=== PATIENT | male | born 1935 | race Caucasian/White ===

== ENCOUNTER 2017-02-07 09:59 | Outpatient (CLI) | payer MEDICARE, OTHER ==
--- OUTSIDE RECORDS SUMMARY | 2017-02-07 10:03 | XMS | Clinical Summary ---
:[address] [facility] Address [address] [place] [address] Phone Care Team Providers Name Role Phone , Primary Care Provider Unavailable Allergies Active Allergy Reactions Severity Noted Date Comments Epinephrine Other (See Comments) Low 08/12/2015 Dizzy at dentist Current Medications Prescription Sig. Disp. Refills Start Date End Date Status aspirin 325 MG EC tablet Take 325 mg by Active mouth daily. omeprazole (PRILOSEC) 40 Take 40 mg by mouth Active MG capsule nightly . pravastatin (PRAVACHOL) Take 40 mg by mouth Active 40 MG tablet daily. isosorbide mononitrate Take 60 mg by mouth Active (IMDUR) 60 MG 24 hr daily. tablet lisinopril Take 10 mg by mouth Active (PRINIVIL,ZESTRIL) 10 MG nightly . tablet coenzyme Q10 100 mg Take 200 mg by Active capsule mouth daily . UNKNOWN Steffen red krill oil. Active multivitamin per tablet Take 1 tablet by Active mouth daily. ezetimibe (ZETIA) 10 mg Take 10 mg by mouth Active tablet nightly . saw palmetto 80 MG Take 80 mg by mouth Active capsule 2 (two) times daily. Active Problems Not on file Social History Tobacco Use Types Packs/Day Years Used Date Former Smoker Smokeless Tobacco: Never Used Comments:QUIT SMOKING >30 YRS AGO Alcohol Use Drinks/Week oz/Week Comments Yes 2 Cans of beer 1.2 2 beers per day Sex Assigned at Date Recorded Not on file Last Filed Vital Signs Vital Sign Reading Time Taken Blood Pressure 134/76 09/28/2016 2:51 PM CDT Pulse 71 09/28/2016 2:51 PM CDT Temperature 36.2 C (97.1 F) 09/28/2016 3:25 PM CDT Respiratory Rate 18 09/28/2016 3:25 PM CDT Oxygen Saturation 91% 09/28/2016 2:51 PM CDT Inhaled Oxygen Concentration - - Weight 118 kg (260 lb 3.2 oz) 09/28/2016 9:45 AM CDT Height 190.5 cm (6' 3") 09/28/2016 9:45 AM CDT Body Mass Index 32.52 09/28/2016 9:45 AM CDT Plan of Treatment Not on file Results Not on filefrom Last 3 Months
[2017-02-07 12:02] LABS: Mean Platelet Volume 8.9 fL (7.4-10.4); Red Blood Cell (RBC) Count 5.33 mill/uL (4.70-6.10)
[2017-02-07 12:06] LABS: Bilirubin Negative (Negative); Blood, Urine Negative (Negative); Glucose, Urine (Dipstick) Negative (Negative); Ketone, Urine Negative (Negative); Nitrite Negative (Negative); Protein, Urine (Dipstick) Negative (Neg-Trace)
[2017-02-07 12:07] LABS: Bacteria/HPF None Seen HPF (None Seen); Hyaline Casts/LPF 0-3 HYALINE CAST LPF (0-3 Hyaline); Squamous Epithelial None Seen HPF (0-3)
[2017-02-07 12:18] LABS: PTT 33.6 SEC (22.9-36.1)
[2017-02-07 12:26] LABS: Anion Gap 12 mmol/L (10-20); BUN (Urea Nitrogen) 18 mg/dL (8.4-25.7); Calc. Creatinine Clearance 0 mL/min (70-130); Calcium 9.2 mg/dL (7.8-10.44); Carbon Dioxide 27 mmol/L (23-31); Chloride 105 mmol/L (98-107); Estimated GFR-MDRD 86
== END 2017-02-07 10:00 | disposition home or self-care (01) ==
LOC: LABBT 09:59
PROVIDERS: ATTEND Urology
DX: Z01.818 Encounter for other preprocedural examination (principal); C67.9 Malignant neoplasm of bladder, unspecified
CPT/HCPCS: 80048; 81001; 85027; 85610; 85730; 87086; 93005; 93010

== ENCOUNTER 2017-02-18 14:23 | Outpatient (CLI) | payer MEDICARE, OTHER | END 2017-02-18 14:24 | disposition home or self-care (01) | LOC: LABBT 14:23 | PROVIDERS: ATTEND Urology | DX: Z01.818 Encounter for other preprocedural examination (principal); C67.9 Malignant neoplasm of bladder, unspecified | CPT/HCPCS: 86850; 86900; 86901 ==

== ENCOUNTER → 2017-02-21 | Day surgery (SDC) | payer MEDICARE, OTHER ==
[2017-02-07 10:11] VITALS: BMI 33.1
[~2017-02-21] MED LIST: Fentanyl 100 MCG/2 ML VIAL ONE; Glycopyrrolate 0.2 MG/ML 5 ML SYRINGE ONE; Levofloxacin 500 mg/D5W 100 ml Premix Bag ONE; Lidocaine 2% PF 10 ML AMP (For Epidural Use) ONE; Midazolam HCl 2 mg/2 ml Vial ONE; Ondansetron HCl/PF 4 MG/2 ML Vial ONE; PHENYLEPHRINE-NS 100 MCG/ML 10 ML SYRINGE ONE; Phenazopyridine HCl 97.5 MG TABLET ONE; Propofol 200 MG/20 ML VIAL ONE; SUGAMMADEX SODIUM 200 MG/2 ML VIAL ONE; SUGAMMADEX SODIUM 500 MG/5 ML VIAL ONE
--- NOTE | 2017-02-21 09:46 | OP ---
DATE OF PROCEDURE: 02/21/2017 SERVICE: Urology. SURGEON: Silverio Muse M.D. PREOPERATIVE DIAGNOSIS: Bladder cancer. POSTOPERATIVE DIAGNOSIS: Bladder cancer. PROCEDURE PERFORMED: Transurethral resection of bladder tumor less than 2 cm area of resection, bertha dder biopsies with left diagnostic ureteroscopy. INDICATIONS FOR PROCEDURE: Mr. Wilson is a 81-year-old white male who previously has been under the c are of Dr. Allison. He had undergone recent resection of bladder tumors and on repeat cystoscopy had been found to have several new recurrences. These had not yet been treated at the time of his moran sfer of care to me. I recommended we get another CT scan as he had been over a year since his last imaging and with new recurrences, I recommended the upper tracts to be imaged more appropriately. T he CT demonstrated there was some abnormal enhancement of the left distal ureter, but otherwise ther e was no significant concern for filling defects or metastatic disease. He is being brought in for removal and diagnosis of these tumors today. DESCRIPTION OF PROCEDURE: After identification of armband and verification of consent, the patient was brought back to the operating room where he underwent general anesthesia with endotracheal intub ation. He was then placed in dorsal lithotomy position and prepped and draped in usual sterile fash ion. After appropriate timeout, lubricated 22-Rwandan rigid cystoscope was introduced per urethra in to the bladder. The urethra did not demonstrate any abnormalities or tumors. The prostate was mode rately obstructive with moderate hypertrophy. No significant median lobe or intravesical extension. Upon entry into the bladder, there was a grade II trabeculation noted throughout the bladder. The re were several mucosal tumors identified, one at approximately 9:00 in the bladder neck. A second tumor noted at the most lateral aspect of the trigone on the left side. A smaller tumor lateral to that on the left posterior bladder wall and two additional tumors identified anteriorly and posterio r central very small tumors. Initially, ureteroscopy was performed with a semirigid ureteroscope wi thout a wire to help ensure that there was no mucosal irritation or trauma. The cystoscope was laquita frances. The ureteroscope was inserted gently into the ureteral orifice and the mucosa inspected, did n ot appear to be any obvious tumor at this point and so I felt that the enhancement was likely physio logic rather than pathologic although we will need to keep close eye on this area to make sure that tumor does not develop later. The ureteroscope was then withdrawn and with the visual obturator was introduced per urethra back into the bladder, the bipolar gyrus resectoscope with a bladder loop wa s then attached into the resectoscope sheath and the tumor at the bladder neck and the left trigone were resected and submitted for routine pathologic evaluation. The resectoscope was then withdrawn and a 22 Rwandan rigid cystoscope was introduced back into the bladder. The irrigation was changed f rom saline to water and the Bugbee and cold cup biopsy graspers brought into the bladder. Cold cup biopsies were then performed on the small tumor on the left posterior wall, anterior bladder and pos terior bladder and submitted for routine pathologic evaluation. Remainder of inspection of the blad lanie with the 30 and 70 degree lens did not demonstrate any additional tumors. With careful inspecti on satisfied that I had gotten all visible tumor that I could identify, the areas of biopsy were ful gurated with the Bugbee electrode until there was excellent hemostasis. A few areas at the bladder neck which were bleeding just secondary to manipulation with the camera were also fulgurated. Satis fied that all visible tumor had been treated, the cystoscope was used to drain the bladder and then removed. The patient was then awakened and taken to PACU for recovery in stable condition. COMPLICATIONS: None. ESTIMATED BLOOD LOSS: Minimal. RETAINED TUBES AND DRAINS: None. SPECIMENS: Bladder biopsies and resected bladder tumor. DISPOSITION: The patient will be discharged home and follow up with me in approximately a week to g shanda over his pathology results, at which time, I have recommended he initiated BCG treatments to try a nd prevent further progression and recurrence of his bladder cancer.
== END ==
LOC: SDC 05:44
PROVIDERS: ATTEND Urology
PROC: 0TBB8ZX Excision of Bladder, Via Natural or Artificial Opening Endoscopic, Diagnostic (ICD-10-PCS; principal; 2017-02-21)
DX: C67.9 Malignant neoplasm of bladder, unspecified (principal); N32.89 Other specified disorders of bladder; N40.0 Benign prostatic hyperplasia without lower urinary tract symptoms; R26.9 Unspecified abnormalities of gait and mobility; I10 Essential (primary) hypertension; K21.9 Gastro-esophageal reflux disease without esophagitis; E89.2 Postprocedural hypoparathyroidism; J98.6 Disorders of diaphragm; I25.10 Atherosclerotic heart disease of native coronary artery without angina pectoris; E29.1 Testicular hypofunction; Z79.82 Long term (current) use of aspirin; Z79.899 Other long term (current) drug therapy; Z88.8 Allergy status to other drugs, medicaments and biological substances; Z95.1 Presence of aortocoronary bypass graft; Z90.49 Acquired absence of other specified parts of digestive tract; Z98.890 Other specified postprocedural states; Z87.891 Personal history of nicotine dependence; Z82.3 Family history of stroke; Z80.1 Family history of malignant neoplasm of trachea, bronchus and lung; Z80.0 Family history of malignant neoplasm of digestive organs
CPT/HCPCS: 88307; J1956; J2001; J2250; J2405; J2704; J3010

== ENCOUNTER 2017-04-17 11:09 | Outpatient (CLI) | payer MEDICARE, OTHER ==
[~2017-04-17 11:09] MED LIST changes: -Fentanyl 100 MCG/2 ML VIAL ONE; +Gadobenate Dimeglumine 529 MG/1 ML (20ML VIAL) ONE; -Glycopyrrolate 0.2 MG/ML 5 ML SYRINGE ONE; -Levofloxacin 500 mg/D5W 100 ml Premix Bag ONE; -Lidocaine 2% PF 10 ML AMP (For Epidural Use) ONE; -Midazolam HCl 2 mg/2 ml Vial ONE; -Ondansetron HCl/PF 4 MG/2 ML Vial ONE; -PHENYLEPHRINE-NS 100 MCG/ML 10 ML SYRINGE ONE; -Phenazopyridine HCl 97.5 MG TABLET ONE; -Propofol 200 MG/20 ML VIAL ONE; -SUGAMMADEX SODIUM 200 MG/2 ML VIAL ONE; -SUGAMMADEX SODIUM 500 MG/5 ML VIAL ONE
--- NOTE | 2017-04-17 14:03 | MRI ---
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 FINDINGS: There is mild prominence of the ventricular system with age appropriate atrophy. No acute territoria l infarction, mass effect, or midline shift. There is no evidence of mass or pathologic enhancement of either CP angle cistern. No enhancing intraaxial mass. There is mild chronic microvascular ische priya disease. There is absence of a tetlin left intraocular lens. Mild mucosal thickening of the par anasal sinuses is present. Central skull base flow voids are patent. IMPRESSION: 1. No evidence of mass or pathologic enhancement of either costophrenic angle cistern. 2. Parenchymal volume loss with compensatory dilatation of the ventricular system. 3. Mild chronic microvascular ischemic disease. 4. No acute intracranial abnormalities. POS: [facility]
== END 2017-04-17 11:10 | disposition home or self-care (01) ==
LOC: MRI 11:09
PROVIDERS: ATTEND Otolaryngology
DX: H90.3 Sensorineural hearing loss, bilateral (principal); R42 Dizziness and giddiness; G93.89 Other specified disorders of brain
CPT/HCPCS: 70553; A9579

== ENCOUNTER 2017-06-20 10:59 | Outpatient (CLI) | payer MEDICARE, OTHER ==
[2017-06-20 12:17] LABS: Hemoglobin 14.9 g/dL (14.0-18.0); Mean Corpuscular HGB CONC 32.7 g/dL (32.0-36.0); Mean Corpuscular Hemoglobin 32.1 pg (27.0-31.0); Mean Corpuscular Volume 98.2 fl (80.0-94.0); Platelet Count 286 thou/uL (130-400); Red Blood Cell (RBC) Count 4.63 mill/uL (4.70-6.10); White Blood Cell (WBC) Count 10.3 thou/uL (4.8-10.8)
[2017-06-20 12:22] LABS: Bilirubin Negative (Negative); Blood, Urine Negative (Negative); Clarity CLEAR (Clear); Glucose, Urine (Dipstick) Negative (Negative); Leukocyte Small (Negative); Nitrite Negative (Negative); Protein, Urine (Dipstick) Negative (Neg-Trace); Prothrombin Time 13.4 SEC (12.0-14.7); Specific Gravity, Urine 1.022 (1.002-1.036)
[2017-06-20 12:24] LABS: Bacteria/HPF None Seen HPF (None Seen); Hyaline Casts/LPF 4-6 HYALINE CAST LPF (0-3 Hyaline); Squamous Epithelial 0-3 HPF (0-3)
[2017-06-20 12:36] LABS: Anion Gap 17 mmol/L (10-20); BUN (Urea Nitrogen) 22 mg/dL (8.4-25.7); Calc. Creatinine Clearance 0 mL/min (70-130); Calcium 9.8 mg/dL (7.8-10.44); Carbon Dioxide 27 mmol/L (23-31); Chloride 100 mmol/L (98-107); Estimated GFR-MDRD 84; Glucose 97 mg/dL (83-110); Potassium 3.7 mmol/L (3.5-5.1); Sodium 140 mmol/L (136-145)
--- NOTE | 2017-06-20 21:54 | EKG ---
Test Reason : Blood Pressure : / mmHG Vent. Rate : 078 BPM Atrial Rate : 078 BPM P-R Int : 168 ms QRS Dur : 098 ms QT Int : 396 ms P-R-T Axes : 035 -07 012 degrees QTc Int : 451 ms Normal sinus rhythm Voltage criteria for left ventricular hypertrophy No acute changes. Abnormal ECG When compared with ECG of 07-FEB-2017 10:44, No significant change was found Confirmed by VARGAS DE LOS SANTOS ([id number]) on 06/20/2017 9:54:05 PM Referred By: CAMELIA Confirmed By:VARGAS DE LOS SANTOS
== END 2017-06-20 11:00 | disposition home or self-care (01) ==
LOC: LABBT 10:59
PROVIDERS: ATTEND Urology
DX: Z01.818 Encounter for other preprocedural examination (principal); N32.9 Bladder disorder, unspecified; R89.6 Abnormal cytological findings in specimens from other organs, systems and tissues
CPT/HCPCS: 80048; 81001; 85027; 85610; 85730; 93005; 93010

== ENCOUNTER 2017-06-28 11:55 | Outpatient (CLI) | payer MEDICARE, OTHER | END 2017-06-28 11:56 | disposition home or self-care (01) | LOC: LABBT 11:55 | PROVIDERS: ATTEND Urology | DX: Z01.818 Encounter for other preprocedural examination (principal); N32.9 Bladder disorder, unspecified; R89.6 Abnormal cytological findings in specimens from other organs, systems and tissues | CPT/HCPCS: 86850; 86900; 86901 ==

== ENCOUNTER 2017-07-15 10:57 | Outpatient (CLI) | payer MEDICARE, OTHER ==
[2017-07-15 12:10] LABS: Bilirubin Negative (Negative); Blood, Urine Negative (Negative); Clarity CLEAR (Clear); Glucose, Urine (Dipstick) Negative (Negative); Leukocyte Trace (Negative); Nitrite Negative (Negative); Protein, Urine (Dipstick) Negative (Neg-Trace)
[2017-07-15 12:15] LABS: Bacteria/HPF None Seen HPF (None Seen); Hyaline Casts/LPF 0-3 HYALINE CAST LPF (0-3 Hyaline); Squamous Epithelial None Seen HPF (0-3)
[2017-07-15 12:28] LABS: RBC/HPF None Seen HPF (0-3)
== END 2017-07-15 10:58 | disposition home or self-care (01) ==
LOC: LABBT 10:57
PROVIDERS: ATTEND Urology
DX: Z01.818 Encounter for other preprocedural examination (principal); C67.9 Malignant neoplasm of bladder, unspecified
CPT/HCPCS: 81001; 87086

== ENCOUNTER 2017-07-18 06:54 | Day surgery (SDC) | payer MEDICARE, OTHER ==
[2017-07-15 11:20] VITALS: BMI 29.9
[2017-07-18] MEDS ORDERED: Levofloxacin 500 mg/D5W 100 ml Premix Bag ONE (09:02)
[2017-07-18] MEDS ORDERED: Fentanyl 250 MCG/5 ML VIAL ONE (13:26)
[2017-07-18] MEDS ORDERED: Iothalamate Meglumine 60% 50 ML VIAL FS ONE (15:06)
[2017-07-18] MEDS ORDERED: Phenazopyridine HCl 97.5 MG TABLET ONE (15:14)
[2017-07-18] MEDS ORDERED: Oxybutynin 5 MG TAB ONE (15:14)
[2017-07-18] MEDS ORDERED: Ondansetron HCl/PF 4 MG/2 ML Vial ONE (15:32)
--- NOTE | 2017-07-18 16:21 | RAD ---
RETROGRADE PYELOGRAM: Four images were presented from OR during retrograde procedure. INDICATION: Bladder cancer. Intraoperative imaging during retrograde procedure. FINDINGS: These images show opacification of the left collecting structures. There is a double collecting syst em on the left. The ureters appear to fuse at the pelvic rim. Both upper moieties are opacified. The final image also shows opacification of the right collecting structures which appears to represen t a normal single colleting system. POS: [facility]
--- NOTE | 2017-07-18 16:22 | OP ---
DATE OF SURGERY: 07/18/2017 SERVICE: Urology. SURGEON: Silverio Muse M.D. PREOPERATIVE DIAGNOSIS: Bladder cancer. POSTOPERATIVE DIAGNOSIS: Bladder cancer. PROCEDURE PERFORMED: Transurethral resection of bladder tumor, resection size over 5 cm with bilater al selective cytologies and bilateral retrograde pyelograms. INDICATIONS FOR PROCEDURE: Mr. Wilson is a 81-year-old white male with a history of low grade recurren t bladder cancer. On cystoscopy, he had an unusual calcified lesion on his lateral bladder wall as w ell as several other scattered lesions, which could not be differentiated from calcified tumors versu s inflammatory lesions with calcifications. His urine cytology was suspicious. Therefore, I recomme nded that we bring him to the operating room for evaluation of his upper and lower tracts with resect ion of these calcified areas. I discussed the procedure in detail with risks and benefits, he has ag jessica to proceed forward. DESCRIPTION OF PROCEDURE: After identification of armband and verification of consent, the patient w as brought back to the operating room, where he underwent general anesthesia with an LMA. He was the n placed in a dorsal lithotomy position, prepped and draped in usual sterile fashion. After appropri ate timeout, a lubricated 26 Surinamese visual obturator guided resectoscope sheath was placed in through the patient's penis into the bladder. His bladder demonstrated grade III trabeculation with multipl e cellules. Both ureters in the orthotopic location with somewhat patulous ureter on the right, saloni cating that this has been likely a previous resection site. The heavily calcified lesion was noted o n the lateral bladder wall with several other smaller calcified lesions throughout the bladder, total ing 4 lesions independently. The larger lesion was resected and the calcification and scar appeared to go quite deep into the detrusor muscle. At one point, it did appear that there may be some perive sical fat visible, indicating that the bladder had been transected transmurally, but this was an extr sara small area. The remainder of it was within the detrusor muscle. The remaining other lesions w ere also resected off from their respective locations. One from the right posterior, one from a lesi on close by to the left lateral one and one near the bladder dome. These [facility]. Meticulous hemostasis was performed of the resection sites. At this point , the resectoscope sheath was used to drain the bladder and then removed. A 22 Surinamese rigid cystosco pe was then introduced per urethra into the bladder. Attention was first turned to the right uretera l orifice, which was cannulated with a 5 Surinamese Pollack catheter. This was used to flush for irrigat e the ureter and renal pelvis with normal saline and then collected into a specimen cup for a right-s ided selective urine cytology. A new Pollack catheter was used for the left side but the same proced ure was done with the 5-Surinamese Pollack catheter with irrigation of 5 mL and collection of the irrigat ion in a separate specimen cup sent as a left urine cytology. Using a Pollack catheter, retrograde p yelogram was performed on the left, demonstrating a partially duplicated ureter with no filling defec ts identified and no hydronephrosis. Attention was then turned to the right ureter, which was cannul ated with a 5 Surinamese Pollack catheter and a retrograde pyelogram performed demonstrating no hydroneph rosis and no filling defects. Satisfied that the upper tracts are clear. The Pollack catheter was t hen removed. The bladder was left full with the cystoscope removed. An 18 Surinamese Martinez catheter was placed into the patient's bladder with 10 mL of sterile water placed into the balloon. This was fix ed to the patient's leg with a StatLock and a gravity drainage bag. The patient was then taken out o f lithotomy, awakened, and taken to PACU for recovery in stable condition. COMPLICATIONS: None. ESTIMATED BLOOD LOSS: Minimal. RETAINED TUBES AND DRAINS: An 18 Surinamese Martinez catheter. SPECIMENS: Bilateral selective cytologies and bladder lesion resection. DISPOSITION: The patient will be discharged home with a Martinez catheter. We will plan to perform a v oiding trial after approximately 4 days, at which time, I expect his bladder to have at least healed up sufficiently as there was an extremely small area of possible detrusor penetration. We will handl e his followup care on an outpatient basis.
== END 2017-07-18 16:25 | disposition home or self-care (01) ==
LOC: SDC 06:54
PROVIDERS: ATTEND Urology
PROC: 0TBB8ZX Excision of Bladder, Via Natural or Artificial Opening Endoscopic, Diagnostic (ICD-10-PCS; principal; 2017-07-18)
PROC: BT141ZZ Fluoroscopy of Kidneys, Ureters and Bladder using Low Osmolar Contrast (ICD-10-PCS; 2017-07-18)
DX: C67.9 Malignant neoplasm of bladder, unspecified (principal); I10 Essential (primary) hypertension; I71.4 Abdominal aortic aneurysm, without rupture; K21.9 Gastro-esophageal reflux disease without esophagitis; I25.10 Atherosclerotic heart disease of native coronary artery without angina pectoris; E78.5 Hyperlipidemia, unspecified; K22.70 Barrett's esophagus without dysplasia; Z87.891 Personal history of nicotine dependence; Z87.442 Personal history of urinary calculi; Z88.8 Allergy status to other drugs, medicaments and biological substances; Z98.890 Other specified postprocedural states
CPT/HCPCS: 52005; 52240; 74420; 88112; 88305; 88341; 88342; C1758; 88108; J1956; J2405; J3010; Q9961

== ENCOUNTER 2017-07-23 08:22 | Outpatient (CLI) | payer MEDICARE, OTHER ==
--- NOTE | 2017-07-23 12:05 | RAD ---
VOIDING CYSTO URETHROGRAM: History: Bladder injury. FINDINGS: Approximately 300 cc of water soluble contrast was instilled into the urinary bladder. There was imme diate bilateral vesicoureteral reflux to the level of the pelvic inlet on the right and into the nond ilated duplicated left renal collecting system on the left. There is partial duplication of the left ureter. No leak from the urinary bladder was apparent. Male urethra has a normal appearance during mi cturition. A small amount of contrast is seen outlining the inferior pole of the left kidney after the reflux wa s achieved. Patient tolerated the procedure well and was dismissed in good condition. IMPRESSION: 1. No evidence of leak from the urinary bladder. There is evidence of leak at the level of the renal calices, although exact point of leak is not identified. 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 3. Bilateral vesicoureteral reflux, grade I on the right. Grade II on the left. POS: [facility]
[2017-07-23] MEDS ORDERED: ISOVUE-370 76%-LOCM 1 ML ONE (16:25)
== END 2017-07-23 08:23 | disposition home or self-care (01) ==
LOC: RAD 08:22
PROVIDERS: ATTEND Urology
DX: N99.72 Accidental puncture and laceration of a genitourinary system organ or structure during other procedure (principal); N13.70 Vesicoureteral-reflux, unspecified
CPT/HCPCS: 51600; 74455

== ENCOUNTER 2017-11-08 12:16 | Inpatient (IN) | payer MEDICARE, OTHER ==
[~2017-11-08 12:16] MED LIST changes: -Gadobenate Dimeglumine 529 MG/1 ML (20ML VIAL) ONE; +ISOVUE-370 76%-LOCM 1 ML ONE
[2017-11-08 13:04] LABS: #Basophils 0.1 thou/uL (0.0-0.2); #Eosinphils 0.1 thou/uL (0.0-0.7); #Lymphocytes 2.3 thou/uL (1.20-3.40); #Monocytes 0.7 thou/uL (0.11-0.59); #Neutrophils 4.9 thou/uL (1.40-6.50); %Basophils 0.9 % (0.0-1.0); %Eosinophils 1.2 % (0.0-10.0); %Lymphocytes 28.5 % (21.0-51.0); %Monocytes 8.7 % (0.0-10.0); %Neutrophils 60.6 % (42.0-75.0); Hemoglobin 14.3 g/dL (14.0-18.0); Mean Corpuscular HGB CONC 33.4 g/dL (32.0-36.0); Mean Corpuscular Hemoglobin 32.3 pg (27.0-31.0); Mean Corpuscular Volume 96.7 fL (78.0-98.0); Mean Platelet Volume 7.5 fL (7.4-10.4); Platelet Count 232 thou/uL (130-400); RBC Distribution Width 12.7 % (11.5-14.5); Red Blood Cell (RBC) Count 4.41 mill/uL (4.70-6.10); White Blood Cell (WBC) Count 8.1 thou/uL (4.8-10.8)
[2017-11-08 13:13] LABS: PTT 31.1 SEC (22.9-36.1); Prothrombin Time 14.5 SEC (12.0-14.7)
[2017-11-08 13:14] LABS: INR-International Normal Ratio 1.1
--- NOTE | 2017-11-08 13:24 | CT ---
CT BRAIN NONCONTRAST: DATE: 11/08/17 TIME: 1239 HOURS HISTORY: 81-year-old male with left upper extremity weakness and left facial numbness. This STAT stroke alert protocol report was called by Dr. Sutton to Dr. Cerna at 1244 hours on 11/08/17 . FINDINGS: There is no midline shift or any other mass effect. There is no evidence of acute intracranial hemor rhage, large cortical infarct, or extraaxial fluid collection. The calvarium is intact. There is di ffuse parenchymal volume loss. There are low attenuation areas in the white matter. These are nonsp ecific, but in a patient of this age, they are probably chronic ischemic white matter changes due to microvascular atherosclerosis. There are calcifications of the bilateral carotid siphons, and especially the left middle cerebral ar ana, including M1 and M2 segments. This includes a 4 mm prominent calcification in the vicinity of t he left MCA trifurcation. These are unchanged compared to 01/20/17, and therefore none of them repres ents an acute thromboembolus. There is also a calcification in one of the sylvian branches of the con tralateral right MCA, which is more prominent than on 01/20/17. The lateral and third ventricles are mildly to moderately dilated, apparently on an ex vacuo basis due to central parenchymal volume loss, unchanged since 03/05/15. IMPRESSION: 1. No acute intracranial findings. 2. Involutional changes and chronic ischemic white matter changes. CODE CR. jn r POS: [facility]
[2017-11-08 13:25] LABS: Albumin 3.8 g/dL (3.4-4.8)
[2017-11-08 13:26] LABS: Chloride 103 mmol/L (98-107); Potassium 4.2 mmol/L (3.5-5.1); Sodium 136 mmol/L (136-145)
[2017-11-08 13:27] LABS: Calcium 9.1 mg/dL (7.8-10.44)
[2017-11-08 13:28] LABS: Globulin 2.8 g/dL (2.4-3.5); Glucose 95 mg/dL (83-110); Protein, Total 6.6 g/dL (5.8-8.1)
[2017-11-08 13:29] LABS: Anion Gap 11 mmol/L (10-20); Bilirubin, Total 0.6 mg/dL (0.2-1.2); Carbon Dioxide 26 mmol/L (23-31)
[2017-11-08 13:30] LABS: Alkaline Phosphatase 64 U/L (40-150)
[2017-11-08 13:31] LABS: Calc. Creatinine Clearance 0 mL/min (70-130); Estimated GFR-MDRD Greater than 90
[2017-11-08 13:32] LABS: BUN (Urea Nitrogen) 14 mg/dL (8.4-25.7)
[2017-11-08 13:33] LABS: ALT (SGPT) 8 U/L (8-55); AST (SGOT) 21 U/L (5-34)
[2017-11-08 13:38] LABS: CKMB 1.2 ng/mL (0-6.6); Troponin I Less than 0.010 ng/mL (< 0.028)
--- NOTE | 2017-11-08 14:37 | CT ---
CT ANGIO HEAD WITH IV CONTRAST: Date: 11/08/17 Multiple axial tomograms obtained through the head following a cerebral angio protocol with multiplan ar reconstruction and 3D postprocessing. INDICATION: Stroke alert. Left side weakness. FINDINGS: Noncontrast CT showed no acute infarct. FINDINGS: The intracranial internal carotid arteries are patent. There are atherosclerotic calcifications in ca vernous portions of both internal carotid arteries. This does produce luminal narrowing on the left a pproaching 50% diameter. Prominent atherosclerotic calcification also seen in the supraclinoid portions of both internal carot id arteries producing moderate bilateral luminal stenosis approaching 50% diameter in both supraclino id internal carotid arteries. The anterior cerebrals are normal and symmetric. The middle cerebral arteries are patent with no evidence of proximal middle cerebral stenosis or occl usion. There are areas of atherosclerotic calcification in the M1 segment of the left MCA producing m oderate stenosis near the genu of the left MCA. The basilar artery is patent. Bilateral posterior cerebrals are patent and symmetric. IMPRESSION: 1. Atherosclerotic calcified plaque is seen in the cavernous portions of both internal carotid arter ies and in the supraclinoid portion of both internal carotid arteries. This calcified plaque does pro duce bilateral stenosis which appears to approach hemodynamic significance of 50% diameter bilaterall y. 2. Mild calcified plaque in the distal M1 segment on the left and at the genu producing what appears to be moderate stenosis in the left distal M1 segment. CT ANGIO NECK: Multiple axial tomograms obtained through neck with angio protocol with multiplanar reconstruction an d 3D postprocessing. INDICATION: Stroke. FINDINGS: Atherosclerotic change is seen in the aortic arch. There is atherosclerotic calcification at the orig in of the arch vessels without evidence of significant stenosis. Both common carotid arteries are unremarkable with mild atherosclerotic change. In the right bulb, there is a large area of complex plaque, both soft and calcified plaque, with evid ence of ulcerated plaque. This produces mild stenosis, but does not appear to be hemodynamically sign ificant according to NASCET criteria. The degree of stenosis is less than 50% diameter. The right ICA above the bulb is unremarkable, but tortuous. There is calcified plaque in the left bulb. Mild soft plaque in the left bulb, not as extensive as th at seen on the right. There is evidence of plaque ulceration, however. There is no evidence of hemody namically significant stenosis. The ICA above the bulb is patent. There is a dominant left vertebral artery. Both vertebrals are patent. IMPRESSION: 1. Large area of complex plaque in the right bulb and proximal ICA, with peripheral calcification an d large area of soft plaque with evidence of ulcerated plaque. This would place the patient at risk f or embolic phenomenon from this site. 2. Moderate atherosclerotic change in the left bulb and left proximal ICA with evidence of ulcerated plaque on the left as well. 3. No evidence of hemodynamically significant stenosis in either internal carotid artery. Findings relayed to Dr. Cerna CODE CR. POS: [facility]
[2017-11-08] MEDS ORDERED: Milk Of Magnesia 30 ML UDCUP PO PRN (14:56)
[2017-11-08] MEDS ORDERED: Acetaminophen 325 MG TAB PO PRN (14:56)
--- NOTE | 2017-11-08 17:06 | MRI ---
MRI OF THE BRAIN WITHOUT CONTRAST: 11/08/17 INDICATIONS: Left arm and facial numbness since 11 o'clock this morning. COMPARISON: CT of the brain dated 11/08/17. FINDINGS: Motion artifact heavily limits image detail. There are punctate foci of restricted diffusion involvin g the cortex of the right frontal lobe as well as the subcortical white matter adjacent to the right lateral ventricle consistent with small punctate acute infarcts. No definite corresponding T2 signal abnormality is evident. No definite intracranial hemorrhage is demonstrated. There is generalized cer ebral atrophy with moderate chronic small vessel white matter ischemic change. The left vertebral art titi is dominant. The diminutive right vertebral artery appears to possibly terminate as the right PIC A on the CTA examination dated 11/08/17. IMPRESSION: 1. Punctate foci of acute infarction involving the right frontal lobe as well as the subcortical white matter of the right parietal region. 2. Generalized cerebral and cerebellar atrophy. 3. Mild chronic small vessel white matter ischemic change. 4. Limitation of exam due to motion artifact. POS: [facility]
[2017-11-08 17:15] VITALS: BMI 32.0
[2017-11-08] MEDS: Atorvastatin Calcium 40 MG TAB PO SCH (20:34)
[2017-11-08] MEDS: Famotidine 20 MG TAB PO SCH (20:34)
[2017-11-08] MEDS: Docusate 100 MG CAP PO SCH (20:34)
--- NOTE | 2017-11-08 20:50 | HP ---
[facility] PH[facility]IAN: Marcos Hoang. PRESENTING COMPLAINT: Weakness and tingling in his left hand. HISTORY OF PRESENT ILLNESS: Mr. Steve Herrera is a 81-year-old male with a past medical history of CAD status post CABG, Meniere's disease, BPH, hyperlipidemia , AAA status post repair, bladder cancer and hypertension. He presented to the emergency room today after he had an episode of numbness in his left arm and fingers around 7:30 a.m. and felt unusual, but patient denied slurred speech, blurry version, loss of consciousness. He had no chest pain, shortness of breath, or palpitation. He takes aspirin every night. No other blood thinners and he also reports some tingling around his face and his mouth. By the time he got to the emergency room, most of the symptoms have resolved. There is no history of fevers, no chills, no changes in about appetite. He has no urinary symptoms. PAST MEDICAL HISTORY: As stated in the HPI. PAST SURGICAL HISTORY: CABG, AAA repair, parathyroid gland removal, 16 polyps removed from his bladder, right rotator cuff surgery, cholecystectomy, right total knee replacement. FAMILY HISTORY: Pancreatic cancer in a sibling. Other family history reviewed but noncontributory. SOCIAL HISTORY: Former smoker. He drinks one beer daily. ALLERGIES: EPINEPHRINE. HOME MEDICATIONS: Aspirin 325 mg at bedtime, Zetia 10 mg at bedtime, isosorbide mononitrate 60 mg a.m., lisinopril 10 mg q.p.m., magnesium oxide 500 mg daily, multivitamin tablet 1 tablet daily, omega red 300 mg daily, omeprazole 20 mg at bedtime, pravastatin 40 mg at bedtime, Saw palmetto 80 mg daily, turmeric root extract 500 mg daily, Ubidcarenone 200 mg at bedtime. REVIEW OF SYSTEMS: All systems reviewed and negative except as stated in HPI. PHYSICAL EXAMINATION: VITAL SIGNS: Blood pressure 118/77, oxygen saturation 93% on room air, respiratory rate 18, pulse rate 80, temperature 97.7. GENERAL: Not in acute distress. He is sitting comfortably in chair. HEENT: Normocephalic, atraumatic, not pale, anicteric. Moist mucous membranes. PERRLA, EOMI. NECK: Supple, full range of movement. No JVD. CARDIOVASCULAR: S1, S2 only. Regular rate and rhythm. No murmurs, rubs or gallop. RESPIRATORY: Vesicular breath sounds bilaterally. No wheezes, rales or rhonchi. ABDOMEN: Soft, nontender, nondistended. Bowel sounds normoactive. No organomegaly. MUSCULOSKELETAL: No edema. PSYCHIATRIC: Normal mood and affect. SKIN: Warm, dry, well-perfused. No rashes or lesions. NEUROLOGIC: Alert and well oriented to time, place and person. No focal deficits. Strength 5/5 in all extremities. DTR normal. No focal deficits. LABORATORY DATA: CBC and CMP are largely unremarkable. CT brain without contrast showed no acute pathology. CT angio showed a large common complex plaque in the right bulb and proximal ICA with peripheral calcification of the large area of soft plaque with evidence of ulcerative plaque. This will place the patient on risk for an embolic phenomena from this site. He also had moderate atherosclerotic change in the left bulb and left proximal ICA with evidence of ulcerative plaque on the left as well. No evidence of hemodynamically significant stenosis in either internal carotid artery. Brain MRI showed punctate foci of acute infarction involving the right frontal lobe as well as subcortical white matter of the right periatrial region, generalized cerebral and cerebellar atrophy, chronic mild small vessel changes in the white matter ischemic change. Limited exam due to motion artifact. ASSESSMENT AND PLAN: 1. Acute ischemic stroke. 2. Coronary artery disease, status post coronary artery bypass graft. 3. Meniere's disease. 4. Benign prostatic hypertrophy. 5. Hyperlipidemia. 6. History of abdominal aortic aneurysm status post repair. 7. Hypertension. The patient has been admitted to the acute ischemic stroke. Symptoms have since resolved with MRI of the brain showed significant findings. A lipid profile has been ordered as well as A1c and fasting and TSH. The patient will be reviewed by Neurology and he will be continued on secondary prevention with aspirin and statin. He will be admitted to the stroke unit. He will be monitored on telemetry for any arrhythmias, PT/OT/speech language pathology will be consulted. Patient will have neuro checks q.4 hours. Case management will also be consulted for discharge planning. For his chronic medical conditions, he will be restarted on his home medication for his CAD. His blood pressure will become controllable. We will be careful to allow for some permissive hypertension. DVT prophylaxis, SCDs. CODE STATUS: FULL CODE. MTDD
[2017-11-08] MEDS: Ezetimibe 10 MG TAB PO SCH (21:15)
[2017-11-08] MEDS: Lisinopril 10 MG TAB PO SCH (21:15)
[2017-11-08] MEDS: Ubidecarenone 50 MG CAP PO SCH (21:15)
[2017-11-09 05:29] LABS: Hemoglobin 13.9 g/dL (14.0-18.0); Mean Corpuscular HGB CONC 32.3 g/dL (32.0-36.0); Mean Corpuscular Volume 96.1 fL (78.0-98.0); Mean Platelet Volume 7.9 fL (7.4-10.4); Platelet Count 237 thou/uL (130-400); RBC Distribution Width 12.7 % (11.5-14.5); Red Blood Cell (RBC) Count 4.47 mill/uL (4.70-6.10); White Blood Cell (WBC) Count 7.1 thou/uL (4.8-10.8)
[2017-11-09 05:43] LABS: Hemoglobin A1c 5.3 % (4.0-6.0)
[2017-11-09 05:44] LABS: Anion Gap 11 mmol/L (10-20); BUN (Urea Nitrogen) 11 mg/dL (8.4-25.7); Calc. Creatinine Clearance 131 mL/min (70-130); Calcium 9.2 mg/dL (7.8-10.44); Carbon Dioxide 28 mmol/L (23-31); Cardiac Risk 2.8 (Less than 4.5); Chloride 104 mmol/L (98-107); Cholesterol 117 mg/dl (< 200 Desired); Estimated GFR-MDRD Greater than 90; Glucose 94 mg/dL (83-110); HDL Cholesterol 42 mg/dL (>60 Neg Risk); LDL Cholesterol, Calculated 61 mg/dL; Sodium 139 mmol/L (136-145); Triglycerides 68 mg/dL (Less than 150)
[2017-11-09] MEDS: Aspirin 325 mg Enteric Coated Tablet PO SCH (08:08)
[2017-11-09] MEDS: Famotidine 20 MG TAB PO SCH ×2 (08:09→20:57)
[2017-11-09] MEDS: Magnesium Oxide 250 MG TAB PO SCH (08:09)
[2017-11-09] MEDS: Docusate 100 MG CAP PO SCH ×2 (08:10→20:59)
--- NOTE | 2017-11-09 13:09 | PDOC.PN ---
- Subjective Encounter Start Date: 11/09/17 Encounter Start Time: 13:09 81 M admitted with acute infarction in right frontal lobe. He is doing well and has no complaints. No acute events overnight. Awaiting PT/OT, ECHO and Neurology review. - Objective MAR Reviewed: Yes Vital Signs & Weight: Vital Signs (12 hours) Temp Pulse Pulse Pulse Resp BP BP 11/09/17 11:43 97.9 F 76 16 11/09/17 09:35 71 77 125/69 127/72 11/09/17 08:09 98.6 F 95 16 11/09/17 07:52 98.6 F 95 16 11/09/17 04:00 97.4 F L 76 18 BP Pulse Ox 11/09/17 11:43 119/72 94 L 11/09/17 09:35 11/09/17 08:09 94 L 11/09/17 07:52 136/90 94 L 11/09/17 04:00 140/75 95 Result Diagrams: 11/09/17 04:48 11/09/17 04:48 Phys Exam - Physical Examination Constitutional: NAD HEENT: moist MMs, sclera anicteric Neck: supple, full ROM Respiratory: no wheezing, no rales, no rhonchi, clear to auscultation bilateral Cardiovascular: RRR, no significant murmur, no rub Gastrointestinal: soft, non-tender, no distention, positive bowel sounds Musculoskeletal: no edema, pulses present Neurological: non-focal, moves all 4 limbs Psychiatric: normal affect, A&O x 3 Skin: no rash, normal turgor Dx/Plan (1) Acute ischemic stroke Code(s): I63.9 - CEREBRAL INFARCTION, UNSPECIFIED Status: Acute Comment: Stable. MRI shoewd an acute infarction R frontal lobe and also in parietal. On ASA, statins. Neurology eval pending. (2) HTN (hypertension) Code(s): I10 - ESSENTIAL (PRIMARY) HYPERTENSION Status: Chronic Qualifiers: Hypertension type: essential hypertension Qualified Code(s): I10 - Essential (primary) hypertension (3) CAD (coronary artery disease) Code(s): I25.10 - ATHSCL HEART DISEASE OF [place] CORONARY ARTERY W/O ANG PCTRS Status: Chronic Qualifiers: Coronary Disease-Associated Artery/Lesion type: bypass graft [place] vs. transplanted heart: [place] heart Associated angina: without angina Qualified Code(s): I25.810 - Atherosclerosis of coronary artery bypass graft(s) without angina pectoris Comment: Stable. chest pain free. (4) BPH (benign prostatic hyperplasia) Code(s): N40.0 - BENIGN PROSTATIC HYPERPLASIA WITHOUT LOWER URINRY TRACT SYMP Status: Chronic Qualifiers: Lower urinary tract symptom presence: symptoms absent Qualified Code(s): N40.0 - Benign prostatic hyperplasia without lower urinary tract symptoms (5) History of AAA (abdominal aortic aneurysm) repair Code(s): Z98.890 - OTHER SPECIFIED POSTPROCEDURAL STATES Status: Chronic - Plan cont current plan of care, PT/OT, social services assistant, out of bed/ambulate, DVT proph w/SCDs Continue secondary prevention with ASA and Statins PT/OT evaluation. f/u ECHO Likely discharge home with services after neurology evaluation in the next 24- 48 hours. Review of Systems - Medications/Allergies Allergies/Adverse Reactions: Allergies Allergy/AdvReac Type Severity Reaction Status Date / Time epinephrine AdvReac Mild Verified 07/15/17 11:21 Medications: Current Medications Acetaminophen (Tylenol) 650 mg PO Q4H PRN PRN Reason: Headache/Fever or Pain Aspirin (Ecotrin) 325 mg PO DAILY [facility] Last Admin: 11/09/17 08:08 Dose: 325 mg Atorvastatin Calcium (Lipitor) 40 mg PO [facility] Last Admin: 11/08/17 20:34 Dose: 40 mg Coenzyme Q10 (Coenzyme Q10) 200 mg PO HS [facility] Last Admin: 11/08/17 21:15 Dose: 200 mg Docusate Sodium (Colace) 100 mg PO BID [facility] Last Admin: 11/09/17 08:10 Dose: 100 mg Ezetimibe (Zetia) 10 mg PO HS [facility] Last Admin: 11/08/17 21:15 Dose: 10 mg Famotidine (Pepcid) 20 mg PO BID [facility] Last Admin: 11/09/17 08:09 Dose: 20 mg Isosorbide Mononitrate (Imdur Er) 60 mg PO QAM [facility] Last Admin: 11/09/17 08:07 Dose: 60 mg Lisinopril (Zestril) 10 mg PO QPM [facility] Last Admin: 11/08/17 21:15 Dose: 10 mg Magnesium Hydroxide (Milk Of Magnesium) 30 ml PO DAILYPRN PRN PRN Reason: Constipation Magnesium Oxide (Magnesium Oxide) 500 mg PO DAILY [facility] Last Admin: 11/09/17 08:09 Dose: 500 mg
--- NOTE | 2017-11-09 14:26 | EKG ---
Test Reason : L HAND NUMBNESS Blood Pressure : / mmHG Vent. Rate : 087 BPM Atrial Rate : 087 BPM P-R Int : 166 ms QRS Dur : 096 ms QT Int : 380 ms P-R-T Axes : 015 065 012 degrees QTc Int : 457 ms Sinus rhythm with Premature atrial complexes Otherwise normal ECG Confirmed by SAWYER RAMOS, ABRIL ([id number]), visual effects editor MIKE SOSA ([id number]) on 11/09/2017 2:26:07 PM Referred By: GEORGIA JACQUES Confirmed By:ABRIL JACQUES MD
[2017-11-09] MEDS ORDERED: Melatonin 3 MG TAB PO PRN (19:49)
[2017-11-09] MEDS: Ubidecarenone 50 MG CAP PO SCH (20:58)
[2017-11-09] MEDS: Ezetimibe 10 MG TAB PO SCH (20:59)
[2017-11-09] MEDS: Atorvastatin Calcium 40 MG TAB PO SCH (21:00)
[2017-11-09] MEDS: Lisinopril 10 MG TAB PO SCH (21:00)
--- NOTE | 2017-11-09 21:09 | CON ---
DATE OF CONSULTATION: 11/09/2017 REFERRING PHYSICIAN: Ghislaine Castro MD REASON FOR CONSULTATION: Left hand weakness. HISTORY OF PRESENT ILLNESS: Mr. Wilson is a pleasant 81-year-old male who has been consulted for evaluation of left hand weakness. He reports that yesterday evening he had a sudden onset of le ft hand weakness. He was having difficulty with holding onto his cell phone. He was having difficul ty with moving his fingers. He also felt numb in the left hand. He did not have any weakness on his face or lower extremities. He did not have any difficulty with balance. There was no weakness asso ciated with right side of his upper or lower extremities. He did not have dysarthria, dysphagia, erin rry vision, diplopia at that time. PAST MEDICAL HISTORY: Significant for hypertension, coronary artery disease, hyperlipidemia, Meniere disease, BPH, AAA status post repair, bladder cancer. PAST SURGICAL HISTORY: Significant for CABG, AAA repair, parathyroid gland removal, 16 polyps remove d from his bladder, right rotator cuff surgery, cholecystectomy, right total knee replacement. FAMILY HISTORY: Significant for pancreatic cancer in his sibling. SOCIAL HISTORY: He is a former smoker. He denies illicit drug use. He drinks 1 beer on a daily bas is. CURRENT MEDICATIONS: Please review MAR. ALLERGIES: Include EPINEPHRINE. REVIEW OF SYSTEMS: As mentioned above in HPI, otherwise negative. PHYSICAL EXAMINATION: VITAL SIGNS: Blood pressure of 104/56, pulse of 72, temperature of 98.7, respirations of 16, O2 sats of 93% on room air. GENERAL: Well-developed, well-nourished male, in no apparent distress. RESPIRATORY: Clear to auscultation bilaterally. CARDIOVASCULAR: Regular rate and rhythm. NEUROLOGIC: Mental status: The patient is awake, alert, oriented x3. Speech and language: Fluent speech. Cranial nerves: Pupils are 3 mm and reactive. Visual gonzales are intact. Extraocular muscl e are intact. No nystagmus noted. Face is symmetric. Tongue and uvula are midline. Motor exam samuel wed normal tone and bulk with 5/5 strength in both upper and lower extremities. Sensory: Sensation is intact and symmetric. Deep tendon reflexes 2+ of flexion with upper and lower extremities. Usha ski: Plantar responses flexion bilaterally. Coordination intact to asnroi-axhk-ywbakt and finger ta pping bilaterally. Gait and Romberg are normal. LABORATORY DATA: Reviewed, which included CBC, coag panel, CMP, lipid profile, which is significant for total cholesterol 117, LDL of 61, HDL of 42, and triglycerides of 468, otherwise unremarkable. IMAGING STUDIES: MRI brain without contrast was reviewed, which showed small acute infarction involv ing the right posterior frontal as well as subcortical parietal lobe. CT angiogram of the head and n no were reviewed, which had shown large area of complex plaque in the right bulb and proximal ICA wi th peripheral calcification and large area of soft plaque with evidence of ulcerated plaque and moder ate atherosclerotic change in the left proximal ICA with ulcerative plaque on the left as well. IMPRESSION: 1. Acute thromboembolic ischemic infarct involving the right middle cerebral artery distribution. 2. Complex plaque in the right carotid bulb and proximal right internal carotid artery. 3. Left internal carotid artery stenosis. PLAN: Mr. Wilson is a pleasant 81-year-old male who presented with acute onset of left hand weakness. He is found to have acute ischemic infarct involving the distal right MCA. His CT angiogr am did show complex plaque at the right carotid bulb and proximal right ICA. This may have resulted in a thromboembolic phenomena. At this time, I would recommend changing his aspirin from 325 to 81 m g daily and adding Plavix 75 mg daily for secondary stroke prevention. He may need to be seen by Car diovascular Surgery, although since he is asymptomatic and is stenosis is 50%, this can be done as an outpatient were outpatient evaluation with cardiovascular surgeon. The patient is okay to be discha rged to home from neurological standpoint.
[2017-11-09] MEDS ORDERED: Mag-Al 1200 mg/1200 mg/30 ML UDCUP PO PRN (22:20)
[2017-11-10 05:39] LABS: Anion Gap 11 mmol/L (10-20); BUN (Urea Nitrogen) 13 mg/dL (8.4-25.7); Calc. Creatinine Clearance 109 mL/min (70-130); Calcium 9.7 mg/dL (7.8-10.44); Carbon Dioxide 30 mmol/L (23-31); Chloride 103 mmol/L (98-107); Estimated GFR-MDRD 81; Glucose 100 mg/dL (83-110); Sodium 140 mmol/L (136-145)
[2017-11-10] MEDS: Docusate 100 MG CAP PO SCH (09:07)
[2017-11-10] MEDS: Famotidine 20 MG TAB PO SCH (09:08)
[2017-11-10] MEDS: Aspirin 325 mg Enteric Coated Tablet PO SCH (09:08)
[2017-11-10] MEDS: Magnesium Oxide 250 MG TAB PO SCH (09:08)
--- NOTE | 2017-11-10 11:26 | PDOC.PN ---
- Subjective Encounter Start Date: 11/10/17 Encounter Start Time: 11:22 Mr. Wilson was seen today in follow-up of an acute CVA. He does not have any complaints. - Objective MAR Reviewed: Yes Vital Signs & Weight: Vital Signs (12 hours) Temp Pulse Resp BP Pulse Ox 11/10/17 08:59 97.5 F L 72 18 95 11/10/17 08:00 97.5 F L 72 18 123/69 95 11/10/17 04:00 97.4 F L 66 18 120/65 96 11/10/17 00:40 97.5 F L 67 18 123/66 95 11/10/17 00:00 97.5 F L 67 18 123/66 95 I&O: 11/09/17 11/10/17 11/11/17 06:59 06:59 06:59 Intake Total 532 Balance 532 Result Diagrams: 11/09/17 04:48 11/10/17 04:42 Phys Exam - Physical Examination HEENT: PERRLA Respiratory: no wheezing, no rales, no rhonchi, clear to auscultation bilateral Cardiovascular: RRR, no significant murmur, no rub Gastrointestinal: soft, non-tender, positive bowel sounds Musculoskeletal: no edema Neurological: moves all 4 limbs Dx/Plan (1) Acute ischemic stroke Code(s): I63.9 - CEREBRAL INFARCTION, UNSPECIFIED Status: Acute Comment: Stable. MRI shoewd an acute infarction R frontal lobe and also in parietal. On ASA, statins. Neurology eval pending. (2) BPH (benign prostatic hyperplasia) Code(s): N40.0 - BENIGN PROSTATIC HYPERPLASIA WITHOUT LOWER URINRY TRACT SYMP Status: Chronic Qualifiers: Lower urinary tract symptom presence: symptoms absent Qualified Code(s): N40.0 - Benign prostatic hyperplasia without lower urinary tract symptoms (3) CAD (coronary artery disease) Code(s): I25.10 - ATHSCL HEART DISEASE OF [place] CORONARY ARTERY W/O ANG PCTRS Status: Chronic Qualifiers: Coronary Disease-Associated Artery/Lesion type: bypass graft [place] vs. transplanted heart: [place] heart Associated angina: without angina Qualified Code(s): I25.810 - Atherosclerosis of coronary artery bypass graft(s) without angina pectoris Comment: Stable. chest pain free. (4) HTN (hypertension) Code(s): I10 - ESSENTIAL (PRIMARY) HYPERTENSION Status: Chronic Qualifiers: Hypertension type: essential hypertension Qualified Code(s): I10 - Essential (primary) hypertension (5) History of AAA (abdominal aortic aneurysm) repair Code(s): Z98.890 - OTHER SPECIFIED POSTPROCEDURAL STATES Status: Chronic - Plan * Acute Ischemic CVA- stable * He has been evaluated by Vascular Surgery, and the plan is for CEA in Saturday * He can be discharged home..
[2017-11-10 11:59] VITALS: BP 141/70; TEMP 97.8
--- NOTE | 2017-11-10 15:39 | CON ---
DATE OF CONSULTATION: 11/10/2017 DATE OF ADMISSION: 11/08/2017 REASON FOR CONSULTATION: Evaluate patient with right hemispheric stroke and right carotid stenosis. HISTORY OF PRESENT ILLNESS: Mr. Wilson presented with left arm and face weakness. This was a new onse t and resolved over a number of hours. He has had a workup including a brain CT scan which was negat tomi. Brain MRI which shows a focal acute infarct involving the right frontal lobe and subcortical wh ite matter of the right parietal region. CT angiogram of the neck shows very tortuous carotid system s bilaterally. The bilateral bulbs were heavily calcified and have ulcers bilaterally. Ulceration o n the right also has some soft plaque associated with it. At the time of his cerebrovascular accident, the patient was taking aspirin 325 mg every day. The pa tient has been transitioned to aspirin 81 mg and Plavix 75 mg while in the hospital. His symptomatol ogy has completely resolved. Patient has had no previous neurologic events. He has no history of ot her neurologic problems. PAST MEDICAL HISTORY: 1. Coronary artery disease/status post coronary bypass grafting. 2. Abdominal aortic aneurysm status post open repair of a ruptured abdominal aortic aneurysm with 2 graft in 1996 in [place], [place]. 3. Hyperlipidemia. 4. Gastroesophageal reflux disease. 5. Diverticulosis. 6. Bladder cancer. 7. Hypertension. PAST SURGICAL HISTORY: 1. Repair of ruptured abdominal aortic aneurysm. 2. Coronary artery bypass grafting in 2005. 3. Circumcision. 4. Right knee surgery. 5. Cholecystectomy. 6. bladder cancer. 7. Bilateral rotator cuff repair. SOCIAL HISTORY: He last smoked over 10 years ago. ALLERGIES: None. PHYSICAL EXAMINATION: GENERAL: This is a well-developed, well-nourished male resting comfortably in bed. VITAL SIGNS: His height is 6 feet 3 inches, his weight is 256 pounds, temperature is 97.5, pulse is 72 and regular, blood pressure is 123/69. HEENT: Sclerae nonicteric. Pupils equal, round bilaterally. NECK: Supple. He has bilateral carotid bruits. CHEST: Clear bilaterally. HEART: Rhythm is regular, without murmur. ABDOMEN: Soft and nontender, without mass. EXTREMITIES: No cyanosis, clubbing or edema. VASCULAR: Palpable carotid, radial, femoral, and dorsalis pedis pulses bilaterally. PSYCHIATRIC: Patient is awake, alert, and oriented to person, place, and time. NEUROLOGIC: The patient's motor exam shows normal strength bilaterally. The patient wears glasses a nd has had no episodes of blindness. ASSESSMENT AND PLAN: Symptomatic right carotid stenosis with an ulcerated bifurcation and soft plaqu e involving the ulceration. He has been placed on aspirin and Plavix. I have discussed carotid enda rterectomy with him -- patient wishes to go home and come back on Saturday for his endarterectomy. We will schedule this as an outpatient.
--- NOTE | 2017-11-10 18:23 | DIS ---
DATE OF ADMISSION: 11/08/2017 DATE OF DISCHARGE: 11/10/2017 PRIMARY CARE PHYSICIAN: Marcos Fraga M.D. DISCHARGE DISPOSITION: Home. PRIMARY DISCHARGE DIAGNOSES: 1. Acute right frontal as well as parietal lobe infarction. 2. Hypertension. 3. Dyslipidemia. 4. Coronary artery disease. 5. Benign prostatic hypertrophy. DISCHARGE MEDICATIONS: Include aspirin 81 mg daily, Plavix 75 mg daily, these are to start after his surgery, he is to continue aspirin 325 mg until then, continue CoQ10 200 mg daily, turmeric extract 500 mg daily, Saw Hagerman 80 mg daily, Pravachol 20 mg at bedtime, omeprazole 20 mg at bedtime, omeg a red 300 mg daily, multivitamin once a daily, magnesium oxide 500 mg daily, lisinopril 10 mg daily, Imdur 60 mg daily and Zetia 10 mg daily. PROCEDURES DONE DURING ADMISSION: The patient had a CT scan of the brain which was negative for any acute intracranial process, also had a CTA of the carotid circulation which showed large complex plaq ues in the right internal carotid artery and also had some moderate plaque in the left internal carot id artery. MRI of the brain demonstrated punctate area of infarction in the right frontal and right parietal lobes. Echocardiogram was significant for diastolic dysfunction as well as an ejection frac tion of 50%-55%. CODE STATUS: FULL CODE. ALLERGIES: EPINEPHRINE. HOSPITAL COURSE: Mr. Wilson is a pleasant 81-year-old gentleman who presented to the emergency room wi th complaints of left hand weakness which started suddenly. He was found to have a right frontal and parietal lobe infarct. He was admitted and evaluated by Neurology as well as Vascular Surgery. The neurologist recommended changing aspirin 325 to Plavix 75 mg along with baby aspirin 81 mg daily. H is LDL was 60. Therefore, we will continue pravastatin. He was evaluated by vascular surgeon, Dr. Isabel mcclellan, who plans to perform a right carotid endarterectomy on this coming 11/12/2017. The ning teran will also need close followup with his primary care physician. He was instructed on this and w e will follow up with Dr. Fraga in approximately 2 weeks.
== END 2017-11-10 12:21 | disposition home or self-care (01) | DRG 65 ==
LOC: ERS 12:16 → 2SE 17:05
PROVIDERS: ADMIT Internal Medicine; ATTEND Internal Medicine
DX: I63.233 Cerebral infarction due to unspecified occlusion or stenosis of bilateral carotid arteries (principal); I77.2 Rupture of artery; I25.810 Atherosclerosis of coronary artery bypass graft(s) without angina pectoris; Z95.1 Presence of aortocoronary bypass graft; H81.09 Meniere's disease, unspecified ear; N40.0 Benign prostatic hyperplasia without lower urinary tract symptoms; E78.5 Hyperlipidemia, unspecified; I10 Essential (primary) hypertension; Z85.51 Personal history of malignant neoplasm of bladder; Z87.891 Personal history of nicotine dependence; G83.24 Monoplegia of upper limb affecting left nondominant side
CPT/HCPCS: 36415; 70450; 70496; 70498; 70551; 80048; 80053; 80061; 82553; 83036; 84443; 84484; 85025; 85027; 85610; 85730; 93005; 93306; G8978-GP-CI; G8979-GP-CI; G8980-GP-CI; G9162-GN-CH; G9163-GN-CH; G9164-GN-CH

== ENCOUNTER 2017-11-12 09:06 | Inpatient (IN) | payer MEDICARE, OTHER ==
[2017-11-12] MEDS ORDERED: CEFAZOLIN/Water 2 GM/20 ML SYRINGE ONE (10:40)
[2017-11-12] MEDS ORDERED: ePHEDrine/0.9% NaCl/PF SYRINGE 50 mg/10 ml ONE (11:29)
[2017-11-12] MEDS ORDERED: Ondansetron HCl/PF 4 MG/2 ML Vial ONE (11:29)
[2017-11-12] MEDS ORDERED: Dexamethasone 20 MG/5 ML VIAL ONE (11:29)
[2017-11-12] MEDS ORDERED: Lidocaine 1% PF 5 ML VIAL ONE (11:29)
[2017-11-12] MEDS ORDERED: PHENYLEPHRINE-NS 100 MCG/ML 10 ML SYRINGE ONE (11:29)
[2017-11-12] MEDS ORDERED: Heparin 10,000 UNITS/ 10 ML VIAL ONE (11:29)
[2017-11-12] MEDS ORDERED: Glycopyrrolate 0.2 MG/ML 5 ML SYRINGE ONE (11:29)
[2017-11-12] MEDS ORDERED: Succinylcholine Chloride 20 MG/ML 10 ml SYRINGE FS ONE (11:29)
[2017-11-12] MEDS ORDERED: Labetalol 100 MG/20 ML MDV ONE (11:29)
[2017-11-12] MEDS ORDERED: PROPOFOL 200 MG/20 ML VIAL ONE (11:29)
[2017-11-12] MEDS ORDERED: Heparin 5,000 UNITS/ML VIAL ONE (11:36)
[2017-11-12] MEDS ORDERED: Protamine Sulfate 50 MG/5 ML VIAL ONE ×2 (11:36→13:58)
[2017-11-12] MEDS ORDERED: Fentanyl 250 MCG/5 ML VIAL ONE (12:04)
[2017-11-12] MEDS ORDERED: Lidocaine 2% Jelly 5 ML TUBE ONE (12:22)
[2017-11-12] MEDS ORDERED: Phenylephrine HCL 10 MG/ML VIAL ONE (13:23)
[2017-11-12] MEDS ORDERED: Promethazine HCl 25 MG/ML VIAL SLOW IVP PRN (14:33)
[2017-11-12] MEDS ORDERED: Ondansetron HCl/PF 4 MG/2 ML Vial IVP PRN ×2 (14:33→14:42)
[2017-11-12] MEDS ORDERED: Promethazine HCl 25 MG/ML VIAL IM PRN ×2 (14:33→14:42)
[2017-11-12] MEDS ORDERED: Phenylephrine 10 MG/NS 250 ML 250 ML IVPB PRN (14:42)
[2017-11-12] MEDS ORDERED: hydrALAZINE 20 MG/ML VIAL SLOW IVP PRN (14:42)
[2017-11-12] MEDS ORDERED: HYDROcodone/Acetaminophen 5/325 mg Tablet PO PRN ×2 (14:42)
[2017-11-12] MEDS ORDERED: Nitroglycerin 50 MG/250 ML BOT 250 ML IVPB PRN (14:42)
[2017-11-12] MEDS ORDERED: Acetaminophen 325 MG TAB PO PRN (14:42)
[2017-11-12] MEDS ORDERED: Fentanyl 100 MCG/2 ML VIAL ONE (14:57)
[2017-11-12] MEDS: Sodium Chloride 0.9% 1,000 ML IV SCH (15:15)
[2017-11-12 16:16] VITALS: BMI 32.0
--- NOTE | 2017-11-12 18:45 | OP ---
DATE OF PROCEDURE: 11/12/2017 PREOPERATIVE DIAGNOSIS: Symptomatic right carotid stenosis status post cerebrovascular accident. POSTOPERATIVE DIAGNOSIS: Symptomatic right carotid stenosis status post cerebrovascular accident. PROCEDURE: Right carotid endarterectomy with patch angioplasty. SURGEON: Jeffry Cheung M.D. ANESTHESIA: General endotracheal. ESTIMATED BLOOD LOSS: 200 mL DESCRIPTION OF PROCEDURE: After operative consent was obtained, the patient was brought to the opera ting room and placed supine position on the operating room table. Appropriate anesthetic monitor was placed and general endotracheal anesthesia induced. Head was rotated to the left. Right neck was p repped and draped in usual sterile fashion. Skin incision was made along the anterior border of ster nocleidomastoid. Facial vein branches were divided with clips and ties. Vagus and hypoglossal nerve s were noted and protected throughout the procedure. Common internal and external carotid arteries w ere carefully dissected free from the surrounding tissues. The patient was systemically heparinized. 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 After 3 minutes, internal, common, and external carotid arterie s were serially clamped. The common carotid artery was opened and the incision extended through the bulb onto the internal carotid artery. A 12-[place] Wayne shunt was placed and antegrade flow reesta blished. The area which looked like a saccular aneurysm was actually an ulceration that was full of soft plaque. Endarterectomy was begun on the common carotid artery extended to the bulb on the inter nal carotid artery. Sharp distal endpoint was obtained. The area of ulceration extended through the media into the adventitia and was almost ruptured. This area of the carotid wall was resected. Bov ine pericardial patch was then brought into the operative field. Carotid. Medial fibers were debrid ed and the carotid irrigated copiously. There were no loose debris left in place. Bovine pericardia l patch was sewn in place with running 6-0 Prolene suture. Prior to completion of the patch suture l ine, the shunt was clamped and removed. Arteries were all backbled and flushed with heparinized sali ne. Patch suture line was completed. Antegrade flow was reestablished up the external carotid arter y. Ten seconds later, antegrade flow was reestablished up the internal carotid artery. Protamine wa s administered. Hemostasis was ensured. Wounds were copiously irrigated. There was a palpable puls e distal to the carotid patch. Wounds were closed in layers and Dermabond applied to the skin. The patient was awakened and neurologically intact at completion. The patient was transferred to the recovery room in stable condition.
[2017-11-12] MEDS: CEFAZOLIN/Water 2 GM/20 ML SYRINGE SLOW IVP SCH (20:43)
[2017-11-12 20:59] VITALS: BP 100/56
[2017-11-12] MEDS ORDERED: Ubidecarenone 50 MG CAP PO SCH (21:00)
[2017-11-12] MEDS ORDERED: Ezetimibe 10 MG TAB PO SCH (21:00)
[2017-11-12] MEDS ORDERED: Pravastatin Sodium 20 MG TAB PO SCH (21:00)
[2017-11-12] MEDS ORDERED: Lisinopril 10 MG TAB PO SCH (21:00)
[2017-11-13] MEDS: CEFAZOLIN/Water 2 GM/20 ML SYRINGE SLOW IVP SCH (03:28)
[2017-11-13] MEDS: Sodium Chloride 0.9% 1,000 ML IV SCH (06:16)
--- NOTE | 2017-11-13 08:06 | DIS ---
DATE OF DISCHARGE: 11/13/2017 PROCEDURES: Right carotid endarterectomy for symptomatic carotid disease. DESCRIPTION OF HOSPITAL STAY: Mr. Wilson was admitted for elective right carotid endarterectomy after suffering a stroke. He has done well postoperatively. He has had no issues postoperatively. At the time of discharge, he is neurologically intact. DISCHARGE MEDICATIONS: Unchanged.
[2017-11-13 08:56] VITALS: TEMP 98.1
[2017-11-13] MEDS ORDERED: Multivitamin W/ Minerals 1 TAB PO SCH (09:00)
[2017-11-13] MEDS ORDERED: Magnesium Oxide 250 MG TAB PO SCH (09:00)
[2017-11-13] MEDS ORDERED: OMEGA RED PO SCH (09:00)
[2017-11-13] MEDS ORDERED: Tamsulosin HCl 0.4 MG CAP PO SCH (09:00)
== END 2017-11-13 08:45 | disposition home or self-care (01) | DRG 39 ==
LOC: SURG B 09:34 → CCU 13:11
PROVIDERS: ADMIT Thoracic Surgery (Cardiothoracic Vascular Surgery); ATTEND Thoracic Surgery (Cardiothoracic Vascular Surgery)
PROC: 03CK0ZZ Extirpation of Matter from Right Internal Carotid Artery, Open Approach (ICD-10-PCS; principal; 2017-11-12)
PROC: 03CH0ZZ Extirpation of Matter from Right Common Carotid Artery, Open Approach (ICD-10-PCS; 2017-11-12)
PROC: 03UH0JZ Supplement Right Common Carotid Artery with Synthetic Substitute, Open Approach (ICD-10-PCS; 2017-11-12)
DX: I65.21 Occlusion and stenosis of right carotid artery (principal); Z86.73 Personal history of transient ischemic attack (TIA), and cerebral infarction without residual deficits
CPT/HCPCS: 88184; 88307; 94640; J1100; J1642; J1644; J2001; J2370; J2405; J2704; J2720; J3010; J7050; J7620

== ENCOUNTER 2018-12-10 08:58 | Outpatient (CLI) | payer MEDICARE, OTHER ==
[2018-12-10 10:06] LABS: Hemoglobin 14.4 g/dL (14.0-18.0); Mean Corpuscular HGB CONC 33.1 g/dL (32.0-36.0); Mean Corpuscular Hemoglobin 31.1 pg (27.0-31.0); Mean Platelet Volume 8.6 fL (7.4-10.4); Platelet Count 198 thou/uL (130-400); RBC Distribution Width 12.1 % (11.5-14.5); Red Blood Cell (RBC) Count 4.63 mill/uL (4.70-6.10); White Blood Cell (WBC) Count 7.8 thou/uL (4.8-10.8)
[2018-12-10 10:14] LABS: PTT 31.3 SEC (22.9-36.1); Prothrombin Time 13.1 SEC (12.0-14.7)
[2018-12-10 10:35] LABS: Bilirubin Negative (Negative); Blood, Urine Trace (Negative); Clarity Turbid (Clear); Glucose, Urine (Dipstick) Normal (Negative); Leukocyte 500 Leu/uL (Negative); Nitrite Negative (Negative); Protein, Urine (Dipstick) 10 mg/dL (Neg-Trace); Squamous Epithelial 0-3 HPF (0-3); WBC/HPF Greater than 50 HPF (0-3)
[2018-12-10 10:37] LABS: Bacteria/HPF 1+ HPF (None Seen)
[2018-12-10 10:37] LABS: Anion Gap 14 mmol/L (10-20); BUN (Urea Nitrogen) 22 mg/dL (8.4-25.7); Calc. Creatinine Clearance 0 mL/min (70-130); Calcium 9.8 mg/dL (7.8-10.44); Carbon Dioxide 27 mmol/L (23-31); Chloride 102 mmol/L (98-107); Estimated GFR-MDRD 85; Glucose 107 mg/dL (83-110); Potassium 4.2 mmol/L (3.5-5.1); Sodium 139 mmol/L (136-145)
== END 2018-12-10 08:59 | disposition home or self-care (01) ==
LOC: LABBT 08:58
PROVIDERS: ATTEND Urology
DX: Z01.818 Encounter for other preprocedural examination (principal); N40.1 Benign prostatic hyperplasia with lower urinary tract symptoms
CPT/HCPCS: 80048; 81001; 85027; 85610; 85730; 87077; 87086; 87186; 93005; 93010

== ENCOUNTER 2018-12-19 06:11 | Day surgery (SDC) | payer MEDICARE, OTHER ==
[2018-12-10 09:18] VITALS: BMI 32.5
[2018-12-19] MEDS ORDERED: Levofloxacin 500 mg/D5W 100 ml Premix Bag ONE (07:49)
[2018-12-19] MEDS ORDERED: Fentanyl 100 MCG/2 ML VIAL ONE (10:11)
[2018-12-19] MEDS ORDERED: Midazolam HCl 2 mg/2 ml Vial ONE (10:11)
[2018-12-19] MEDS ORDERED: Propofol 500 MG/50 ML VIAL ONE (10:12)
[2018-12-19] MEDS ORDERED: Protamine Sulfate 50 MG/5 ML VIAL ONE (10:12)
[2018-12-19] MEDS ORDERED: B & O ONE (10:27)
--- NOTE | 2018-12-19 16:35 | OP ---
DATE OF PROCEDURE: 12/19/2018 SERVICE: Urology. PREOPERATIVE DIAGNOSIS: Benign prostatic hypertrophy. POSTOPERATIVE DIAGNOSIS: Benign prostatic hypertrophy. PROCEDURE PERFORMED: UroLift procedure with four implants. INDICATIONS FOR PROCEDURE: Mr. Wilson is an 83-year-old white male with history of bladder cancer, who has significant BPH and urinary complaints. He is not satisfied with medical therapy. We had discussed UroLift procedure and he was a candidate based on cystoscopic and ultrasound findings. Risks and benefits of the surgery were discussed and he has agreed to proceed forward. Of note, he also was going to get his routine cystoscopic surveillance for bladder cancer at the same time. DESCRIPTION OF PROCEDURE: After identification of armband and verification of consent, the patient was brought back to the operating room, where he underwent total intravenous anesthesia. He was then placed in dorsal lithotomy position and prepped and draped in usual sterile fashion. After appropriate time-out, a lubricated 21-Ugandan rigid cystoscope was introduced per urethra into the bladder. The urethra was normal without strictures. The prostate was hypertrophic with large bilobar hypertrophy and previously had been noted on the office cystoscopy. The bladder mucosa had these typical abnormalities, which previously had been seen in office cystoscopy, namely inflammatory scar contracted areas along the left lateral, anterior, and right posterior bladder wall. None of these areas demonstrated any papillary type tumors. Due to one area that was bleeding and looked a little red, we did send a cytology and urine FISH test to ensure that there was no malignant type cells. There were no obvious papillary tumors on circumferential evaluation of the entire bladder. Both ureters were in orthotopic location. The cystoscope was then brought back into the prostatic urethra to evaluate the prostate, which again looked favorable for the UroLift procedure. The visual obturator was switched out then for the UroLift device. The first implant was placed on the patient's left prostate lobe closer to the bladder neck. Compression was achieved by compressing and lifting the prostate tissue laterally approximately 20 degrees. Once good placement had been confirmed and we were far enough away from the bladder neck, the safety was taken off and the needle deployed with blue trigger and the UroLift device deployed with a ham trigger. The device was advanced forward until the white line could be seen in the keyhole and then the steel tab deployed. This resulted in nice compression of the lateral lobe. This was repeated again on the contralateral side near the bladder neck and 2 additional implants were placed close to the verumontanum in the medial aspect of the prostate lateral lobes with very nice opening of the entire prostatic urethra. Bleeding was noted to be relatively mild. The UroLift device was then removed and an 18-Ugandan Martinez catheter placed into the patient's bladder. A 10 mL of sterile water placed into the balloon. The patient then awakened and taken to PACU for recovery in stable condition. COMPLICATIONS: None. ESTIMATED BLOOD LOSS: Minimal. RETAINED TUBES AND DRAINS: An 18-Ugandan Martinez catheter. SPECIMENS: Urine cytology and urine FISH. DISPOSITION: The patient will be monitored for blood in the urine. If it is excessively bloody, we will send him home with a catheter. If not, he could undergo a void trial and as so long as he can urinate, he should be able to be discharged. We will handle his bladder cancer surveillance and follow up for the procedure on an outpatient basis. Job ID: [id number]
== END 2018-12-19 13:00 | disposition home or self-care (01) ==
LOC: SDC 06:11
PROVIDERS: ATTEND Urology
PROC: 0T7D8DZ Dilation of Urethra with Intraluminal Device, Via Natural or Artificial Opening Endoscopic (ICD-10-PCS; principal; 2018-12-19)
DX: N40.1 Benign prostatic hyperplasia with lower urinary tract symptoms (principal); C67.9 Malignant neoplasm of bladder, unspecified; I25.10 Atherosclerotic heart disease of native coronary artery without angina pectoris; I10 Essential (primary) hypertension; E78.5 Hyperlipidemia, unspecified; K21.9 Gastro-esophageal reflux disease without esophagitis; E78.00 Pure hypercholesterolemia, unspecified; E89.0 Postprocedural hypothyroidism; Z86.73 Personal history of transient ischemic attack (TIA), and cerebral infarction without residual deficits; Z87.891 Personal history of nicotine dependence; Z79.82 Long term (current) use of aspirin; Z79.899 Other long term (current) drug therapy; Z88.8 Allergy status to other drugs, medicaments and biological substances; Z95.1 Presence of aortocoronary bypass graft
CPT/HCPCS: 88112; 88121; C1889; C9740; J1956; J2250; J2704; J2720; J3010

== ENCOUNTER 2019-07-10 14:43 | Emergency (ER) | payer MEDICARE, OTHER ==
[~2019-07-10 14:43] MED LIST changes: -ISOVUE-370 76%-LOCM 1 ML ONE; +Iopamidol-370 76% 500 ML 1 ML ONE
[2019-07-10 15:59] LABS: #Eosinphils 0.1 thou/uL (0.0-0.7); #Lymphocytes 1.5 thou/uL (1.20-3.40); #Monocytes 0.8 thou/uL (0.11-0.59); #Neutrophils 5.2 thou/uL (1.40-6.50); %Basophils 0.3 % (0.0-1.0); %Eosinophils 1.5 % (0.0-10.0); %Monocytes 10.2 % (0.0-10.0); Hemoglobin 14.8 g/dL (14.0-18.0); Mean Corpuscular HGB CONC 32.3 g/dL (32.0-36.0); Mean Corpuscular Hemoglobin 30.6 pg (27.0-31.0); Mean Corpuscular Volume 94.8 fL (78.0-98.0); Mean Platelet Volume 8.6 fL (7.4-10.4); Platelet Count 203 thou/uL (130-400); RBC Distribution Width 12.6 % (11.5-14.5); Red Blood Cell (RBC) Count 4.83 mill/uL (4.70-6.10); White Blood Cell (WBC) Count 7.6 thou/uL (4.8-10.8)
[2019-07-10 16:19] LABS: ALT (SGPT) 7 U/L (8-55); AST (SGOT) 19 U/L (5-34); Albumin 3.7 g/dL (3.4-4.8); Alkaline Phosphatase 88 U/L (40-110); Anion Gap 12 mmol/L (10-20); BUN (Urea Nitrogen) 11 mg/dL (8.4-25.7); Bilirubin, Total 0.8 mg/dL (0.2-1.2); Calc. Creatinine Clearance 0 mL/min (70-130); Calcium 9.2 mg/dL (7.8-10.44); Carbon Dioxide 31 mmol/L (23-31); Chloride 102 mmol/L (98-107); Estimated GFR-MDRD Greater than 90; Glucose 100 mg/dL (83-110); Potassium 3.8 mmol/L (3.5-5.1); Protein, Total 6.7 g/dL (5.8-8.1); Sodium 141 mmol/L (136-145)
--- NOTE | 2019-07-10 17:36 | CT ---
CT CHEST, ABDOMEN WITH IV CONTRAST FOLLOWING AORTOGRAM PROTOCOL: 07/10/19 Axial tomograms obtained with multiplanar reconstructions and 3D postprocessing. INDICATIONS: Back pain. History of a prior ruptured abdominal aortic aneurysm. Comparison made to CT abdomen from 2007. That exam revealed postoperative changes around the aorta; h owever, no evidence of aneurysm or dissection was present at that time. FINDINGS: Thoracic aorta shows atherosclerotic calcification and mild ectasia of the aortic arch and the descen ding thoracic aorta. No evidence of dissection. The abdominal aorta shows mild atherosclerotic change proximally. There is an abdominal aortic aneurysm involving the distal abdominal aorta which has a saccular appea piedad. This aneurysm has significant peripheral thrombus. The aneurysm measures up to 4 cm diameter. The lumen at this location is measured at approximately 2 cm diameter. The external wall shows calcification. No definite evidence of aneurysmal leak identified. There is aneurysmal dilatation in the internal iliac artery with a focal saccular aneurysm measuring up to 2.7 cm arising from this vessel in the left pelvis. Soft tissues show unremarkable liver, spleen, pancreas. There is an exophytic peripherally calcified cystic mass from the posterior left kidney. This was present on 2007 and is benign. There are other c ystic lesions seen in both kidneys. There are two to three calcifications in the lower pole of the ri ght kidney with the largest measuring up to 5 mm. Calcification in the mid pole left kidney measures up to 5 mm. No hydronephrosis. The visualized bowel loops unremarkable. IMPRESSION: 1. Abdominal aortic aneurysm as described. 2. Atherosclerotic changes and ectasia of the descending thoracic aorta. 3. Exophytic calcified cystic lesion from the left kidney and other cystic lesions in the kidney as described. 4. Bilateral obstructing calculi in the collecting structures of both kidneys. 5. Aneurysm left internal iliac artery POS: [facility]
== END 2019-07-10 18:45 | disposition home or self-care (01) ==
LOC: ERS 14:43
DX: M54.5 Low back pain (principal); I25.10 Atherosclerotic heart disease of native coronary artery without angina pectoris; E78.5 Hyperlipidemia, unspecified; E78.00 Pure hypercholesterolemia, unspecified; I10 Essential (primary) hypertension; Z79.82 Long term (current) use of aspirin; Z79.899 Other long term (current) drug therapy
CPT/HCPCS: 36415; 71275; 72191; 74175; 80053; 85025; Q9967

== ENCOUNTER 2019-07-15 09:04 | Inpatient (IN) | payer MEDICARE, OTHER ==
[2019-07-15 09:52] LABS: #Eosinphils 0.1 thou/uL (0.0-0.7); #Lymphocytes 1.1 thou/uL (1.20-3.40); #Monocytes 0.7 thou/uL (0.11-0.59); #Neutrophils 7.6 thou/uL (1.40-6.50); %Basophils 0.3 % (0.0-1.0); %Eosinophils 0.9 % (0.0-10.0); %Lymphocytes 11.4 % (21.0-51.0); %Monocytes 7.8 % (0.0-10.0); %Neutrophils 79.7 % (42.0-75.0); Hemoglobin 14.8 g/dL (14.0-18.0); Mean Corpuscular HGB CONC 30.9 g/dL (32.0-36.0); Mean Corpuscular Hemoglobin 29.7 pg (27.0-31.0); Mean Corpuscular Volume 96.1 fL (78.0-98.0); Mean Platelet Volume 9.4 fL (7.4-10.4); Platelet Count 184 thou/uL (130-400); RBC Distribution Width 12.9 % (11.5-14.5); Red Blood Cell (RBC) Count 4.97 mill/uL (4.70-6.10); White Blood Cell (WBC) Count 9.5 thou/uL (4.8-10.8)
[2019-07-15 10:06] LABS: ALT (SGPT) 7 U/L (8-55); AST (SGOT) 22 U/L (5-34); Alkaline Phosphatase 96 U/L (40-110); Anion Gap 13 mmol/L (10-20); BUN (Urea Nitrogen) 39 mg/dL (8.4-25.7); Bilirubin, Total 0.8 mg/dL (0.2-1.2); Calc. Creatinine Clearance 0 mL/min (70-130); Calcium 9.5 mg/dL (7.8-10.44); Carbon Dioxide 33 mmol/L (23-31); Chloride 99 mmol/L (98-107); Estimated GFR-MDRD 89; Globulin 2.6 g/dL (2.4-3.5); Glucose 113 mg/dL (83-110); Lipase 11 U/L (8-78); Potassium 4.3 mmol/L (3.5-5.1); Protein, Total 6.6 g/dL (5.8-8.1); Sodium 141 mmol/L (136-145)
--- NOTE | 2019-07-15 10:20 | CT ---
CT ABDOMEN AND PELVIS WITH IV CONTRAST: Date: 07/15/2019 INDICATION: History of abdominal pain and inability to have a bowel movement. COMPARISON: CT abdomen and pelvis with and without contrast dated 02/15/[address] aortic dissection protocol da bella 07/10/2019. FINDINGS: The infrarenal abdominal aortic aneurysm is not appreciably changed from the comparison examination. There is bibasilar atelectasis. There are calcified granuloma in both lower lobes. There is calcified granuloma within the spleen. Gallbladder is surgically absent. Pancreas and adrenal glands are aleta l appearing. There are bilateral nonobstructing renal calculi and bilateral renal cysts. Curvilinear perinephric collection along the inferior pole of the left kidney is stable and likely reflecting res ults of old perinephric hematoma. No enlarged lymph nodes are evident. There is a moderate amount of retained stool within the colon. S cattered colonic diverticulosis is present. No active inflammatory change is grossly evident. Appendi x is normal. Small bowel is of normal caliber. Aneurysm involving the left internal iliac artery is s table appearing. No definite acute osseous abnormality is evident. There is scattered degenerative and osteoarthritic change. Compression abnormality involving T12 is again demonstrated. There has been some mild interva l loss of height of the T12 compression fracture. IMPRESSION: 1. Mild interval loss of height of the T12 wedge compression fracture. 2. Moderate amount of retained stool within the colon. 3. Chronic findings as above. POS: [facility]
--- NOTE | 2019-07-15 10:21 | RAD ---
PORTABLE CHEST: Date: 07/15/2019 HISTORY: Hematemesis. COMPARISON: 06/16/13 study. FINDINGS: Heart size appears slightly enlarged with atherosclerotic changes of the aorta. Postop sternotomy daryl nges are seen. Chronic appearing lung changes appear similar to the prior exam. IMPRESSION: Cardiomegaly with chronic appearing lung change. POS: [facility]
[2019-07-15] MEDS ORDERED: Iopamidol-370 76% 500 ML 1 ML ONE (13:27)
--- NOTE | 2019-07-15 14:08 | PDOC.FPRHP ---
- History of Present Illness Chief Complaint: vomiting History of Present Illness: This is an 83yo M who presented to the ER with vomiting up "stool-colored" emesis x 4 today. He also endorses constipation for the last 5 days. The patient states that he was seen here in the ER about a week ago for back pain and was sent home. He was sent home with a muscle relaxer. He endorses SOB that is stable. He states he is usually always this SOB. He does not have a diagnosis of COPD and does not use O2 at home. He cannot walk very far without getting SOB. He gets SOB talking multiple sentences. Denies any chest pain, palpitations, abdominal pain, blood in stools, dizziness, lightheadedness. He endorses subjective fever. Woke up sweaty this morning. Denies chills. Reports N /V x "at least 4" today. Endorses decreased appetite about 3 days ago. Has been taking alieve for his back pain - about 2 tabs twice a day for the last week. Endorses having a lot of gas, but no stool. Lives at home with his . ED Course: given 1 L NS - Allergies/Adverse Reactions Allergies Allergy/AdvReac Type Severity Reaction Status Date / Time epinephrine AdvReac Intermediate DIZZY Verified 07/15/19 14:51 - Home Medications Medication Instructions Recorded Confirmed Type Lisinopril 10 mg PO DAILY 06/16/13 07/15/19 History Multivitamin [Daily Multiple 1 tablet PO DAILY 12/14/13 07/15/19 History Vitamin] Ubidecarenone [CoQ-10] 200 mg PO DAILY 12/14/13 07/15/19 History Ezetimibe [Zetia] 10 mg PO QAM 04/22/15 07/15/19 History Saw [place] 80 mg PO DAILY 04/22/15 07/15/19 History Turmeric Root Extract [Turmeric] 500 mg PO BID 02/07/17 07/15/19 History Omeprazole 20 mg PO QAM 06/20/17 07/15/19 History Tamsulosin HCl [Flomax] 0.4 mg PO QAM 11/11/17 07/15/19 History Aspirin Chewable [Aspirin Chewable 325 mg PO QAM 12/10/18 07/15/19 History Tablet] Pravastatin Sodium [Pravachol] 20 mg PO HS 12/10/18 07/15/19 History traMADol HCl [Tramadol HCl] 1 tab PO HS 12/10/18 07/15/19 History Isosorbide Mononitrate 40 mg PO DAILY 07/15/19 07/15/19 History Methocarbamol [Robaxin] 1 - 2 tab PO Q6HR PRN 07/15/19 07/15/19 History Potassium Gluconate [Potassium] 99 mg PO BID 07/15/19 07/15/19 History - History PMHx: bladder cancer s/p chemo (07/2017), CAD, AAA, HLD, HTN, AAA s/p surgery PSHx: R knee replacement, bladder sx x 16, right rotator cuff, cholecystectomy, CABG 3 vessel, AAA surgery FHx: none Social: Alcohol - occasional drinker, has not drank anything recently; Denies drug use; Tobacco - smoked 2packs/day for 30 years, quit 35yrs ago - Review of Systems General: reports: fever/chills, weight/appetite/sleep changes, night sweats. denies: fatigue Eyes: denies: vision changes ENT: denies: nasal congestion, rhinorrhea Respiratory: reports: shortness of breath, exercise intolerance. denies: cough , congestion Cardiovascular: denies: chest pain, palpitation, edema Gastrointestinal: reports: nausea, vomiting, constipation. denies: diarrhea, abdominal pain Genitourinary: denies: dysuria, polyuria Skin: denies: rashes, lesions Musculoskeletal: reports: pain (low back) Neurological: denies: weakness - Vital signs BP: 133/89, HR 95, T 98.2, 70% on RA (initially) -> 93% on 3L O2, Weight: 120kg - Physical Exam Constitutional: NAD, awake, alert and oriented, well developed HEENT: normocephalic and atraumatic, PERRLA, EOMI, no scleral icterus, grossly normal vision, grossly normal hearing -HEENT: dry MM Neck: supple, FROM Chest: no-tender to palpation Heart: RRR, normal S1/S2, no murmurs/rubs/gallops -Lungs: poor inspiratory effort, no wheezes ascultated Abdomen: soft, non-tender, bowel sounds present, no masses/distention Musculoskeletal: normal structure Neurological: no focal deficit Skin: no rash/lesions, good turgor, capillary refill <2 seconds Psychiatric: normal mood and affect FMR H&P: Results - Labs Result Diagrams: 07/16/19 05:38 07/16/19 05:38 Lab results: WBC 9.5 thou/uL (4.8-10.8) 07/15/19 09:31 Hgb 14.8 g/dL (14.0-18.0) 07/15/19 09:31 Hct 47.8 % (42.0-52.0) 07/15/19 09:31 MCV 96.1 fL (78.0-98.0) 07/15/19 09:31 Plt Count 184 thou/uL (130-400) 07/15/19 09:31 Neutrophils % 79.7 % (42.0-75.0) H 07/15/19 09:31 Sodium 141 mmol/L (136-145) 07/15/19 09:31 Potassium 4.3 mmol/L (3.5-5.1) 07/15/19 09:31 Chloride 99 mmol/L (98-107) 07/15/19 09:31 Carbon Dioxide 33 mmol/L (23-31) H 07/15/19 09:31 BUN 39 mg/dL (8.4-25.7) H 07/15/19 09:31 Creatinine 0.83 mg/dL (0.7-1.3) 07/15/19 09:31 Glucose 113 mg/dL (83-110) H 07/15/19 09:31 Calcium 9.5 mg/dL (7.8-10.44) 07/15/19 09:31 Total Bilirubin 0.8 mg/dL (0.2-1.2) 07/15/19 09:31 AST 22 U/L (5-34) 07/15/19 09:31 ALT 7 U/L (8-55) L 07/15/19 09:31 Alkaline Phosphatase 96 U/L (40-110) 07/15/19 09:31 Serum Total Protein 6.6 g/dL (5.8-8.1) 07/15/19 09:31 Albumin 4.0 g/dL (3.4-4.8) 07/15/19 09:31 Lipase 11 U/L (8-78) 07/15/19 09:31 - Radiology Interpretation CT scan - abdomen Status: report reviewed by me (milt loss of height of the 12 wedge compression fracture, mod amt of stool in the colon) FMR H&P: A/P - Problem List (1) Bladder cancer Current Visit: No Status: Acute (2) BPH (benign prostatic hyperplasia) Current Visit: No Status: Chronic Code(s): N40.0 - BENIGN PROSTATIC HYPERPLASIA WITHOUT LOWER URINRY TRACT SYMP Qualifiers: Lower urinary tract symptom presence: symptoms absent Qualified Code(s): N40.0 - Benign prostatic hyperplasia without lower urinary tract symptoms (3) CAD (coronary artery disease) Current Visit: No Status: Chronic Code(s): I25.10 - ATHSCL HEART DISEASE OF [place] CORONARY ARTERY W/O ANG PCTRS Qualifiers: Coronary Disease-Associated Artery/Lesion type: bypass graft [place] vs. transplanted heart: [place] heart Associated angina: without angina Qualified Code(s): I25.810 - Atherosclerosis of coronary artery bypass graft(s) without angina pectoris Comment: Stable. chest pain free. (4) HTN (hypertension) Current Visit: No Status: Chronic Code(s): I10 - ESSENTIAL (PRIMARY) HYPERTENSION Qualifiers: Hypertension type: essential hypertension Qualified Code(s): I10 - Essential (primary) hypertension (5) History of AAA (abdominal aortic aneurysm) repair Current Visit: No Status: Chronic Code(s): Z98.890 - OTHER SPECIFIED POSTPROCEDURAL STATES - Plan Acute Hypoxic Resp Failure 2/2 suspected underlying COPD Patient presented to the ER satting 70% on RA. CXR showing cardiomegaly. - Doris AISHA - Procal neg; no indication to start antibiotics at this time. Flu swab neg. - Will give methylprednisolone x 3 then start prednisone - Keep O2 sats 88-92%, continue NC and ween as tolerated - Will need further work up outpatient including spirometry Hematemesis 2/2 UGIB Patient with coffee ground emesis x 4 today. Recent Alieve use. Emesis likely due to ulcer from NSAID use. CT abd r/o SBO. - Will start patient on IV protonix BID - zofran PRN - H/H and vitals stable, will continue to monitor - Will consult GI to see if EGD is necessary if patient continues to have coffee ground emesis Constipation - Will add on bowel regimen and monitor HTN - aware, will restart home meds GERD - aware, on PPI Hx of stroke - aware, will need to hold anticoagulation. Patient is s/p right carotid endarterectomy on 11/12/17. Hx of bladder cancer - aware, continue home meds Hx of BPH, s/p urolift - aware, continue home meds Hx of AAA, s/p repair - aware, stable. CT neg for dissection on 07/10/19. Code: FULL VTE: SCDs Diet: HH lo sod Dispo: admit to medical, obs Case discussed with Dr. Nolasco Addendum - Attending - Attending Attestation Date/Time: 07/16/19 [id number] I personally evaluated the patient and discussed the management with Dr. Lal yesterday afternoon. I agree with the History, Examination, Assessment and Plan documented above with any addition or exceptions noted below.
[2019-07-15] MEDS ORDERED: Ondansetron PF 4 MG/2 ML Vial IVP PRN (14:45)
[2019-07-15] MEDS ORDERED: Acetaminophen 650 MG Suppository PR PRN (14:45)
[2019-07-15] MEDS ORDERED: Ondansetron ODT 4 MG TAB PO PRN (14:45)
[2019-07-15] MEDS ORDERED: Bisacodyl 5 MG TAB PO PRN (14:45)
[2019-07-15] MEDS ORDERED: Lactated Ringer's 1,000 ML IV SCH (15:00)
[2019-07-15] MEDS: Lactated Ringer's 1,000 ML IV SCH ×2 (16:11→22:51)
[2019-07-15] MEDS ORDERED: Milk Of Magnesia 30 ML UDCUP PO PRN (17:15)
[2019-07-15] MEDS ORDERED: Polyethylene Glycol 3350 17 GM Packet PO SCH (17:15)
[2019-07-15] MEDS: Pantoprazole 40 MG VIAL IVP SCH (20:04)
[2019-07-15] MEDS: Simvastatin 5 MG TAB PO SCH (20:04)
[2019-07-15] MEDS: methylPREDNISolone Sod Succ 40 MG VIAL IVP SCH (20:04)
[2019-07-15] MEDS: Acetaminophen 325 MG TAB PO PRN (20:05)
[2019-07-15] MEDS ORDERED: Potassium Gluconate [Potassium] 99 MG PO SCH (21:00)
[2019-07-15] MEDS ORDERED: guaiFENesin 100 MG/5 ML UDCUP PO PRN (21:46)
[2019-07-15] MEDS: Potassium Chloride 8 MEQ TAB PO SCH (21:57)
[2019-07-15] MEDS: Diabetic Tussin 200 MG/10 ML UDCUP PO PRN (22:54)
[2019-07-16] MEDS: Lactated Ringer's 1,000 ML IV SCH (05:33)
[2019-07-16 06:09] LABS: #Lymphocytes 0.9 thou/uL (1.20-3.40); #Monocytes 0.1 thou/uL (0.11-0.59); #Neutrophils 8.2 thou/uL (1.40-6.50); %Basophils 0.1 % (0.0-1.0); %Eosinophils 0.1 % (0.0-10.0); %Lymphocytes 9.5 % (21.0-51.0); %Monocytes 1.4 % (0.0-10.0); %Neutrophils 88.8 % (42.0-75.0); Hemoglobin 13.4 g/dL (14.0-18.0); Mean Corpuscular HGB CONC 30.2 g/dL (32.0-36.0); Mean Corpuscular Hemoglobin 29.2 pg (27.0-31.0); Mean Corpuscular Volume 96.8 fL (78.0-98.0); Mean Platelet Volume 9.4 fL (7.4-10.4); Platelet Count 168 thou/uL (130-400); RBC Distribution Width 12.8 % (11.5-14.5); Red Blood Cell (RBC) Count 4.57 mill/uL (4.70-6.10); White Blood Cell (WBC) Count 9.2 thou/uL (4.8-10.8)
[2019-07-16 06:32] LABS: Anion Gap 12 mmol/L (10-20); BUN (Urea Nitrogen) 20 mg/dL (8.4-25.7); Calc. Creatinine Clearance 144 mL/min (70-130); Calcium 8.8 mg/dL (7.8-10.44); Carbon Dioxide 31 mmol/L (23-31); Chloride 102 mmol/L (98-107); Estimated GFR-MDRD Greater than 90; Glucose 124 mg/dL (83-110); Potassium 4.5 mmol/L (3.5-5.1); Sodium 140 mmol/L (136-145)
[2019-07-16] MEDS ORDERED: predniSONE 20 MG TAB PO SCH (08:00)
[2019-07-16] MEDS: Ubidecarenone 50 MG CAP PO SCH (08:25)
[2019-07-16] MEDS: Tamsulosin HCl 0.4 MG CAP PO SCH (08:25)
[2019-07-16] MEDS: Isosorbide Mononitrate 20 MG TAB PO SCH (08:25)
[2019-07-16] MEDS: Lisinopril 10 MG TAB PO SCH (08:26)
[2019-07-16] MEDS: Pantoprazole 40 MG VIAL IVP SCH (08:26)
[2019-07-16] MEDS: Multivit, Therapeutic 1 TAB PO SCH (08:26)
[2019-07-16] MEDS: methylPREDNISolone Sod Succ 40 MG VIAL IVP SCH ×2 (08:27→20:52)
--- NOTE | 2019-07-16 08:57 | PDOC.FM ---
- Subjective Subjective: NAEO. Patient sitting up eating breakfast at the bedside. Reports back pain that is somewhat helped with the tramadol. He states he has not vomited anymore. denies nausea. Denies fever/chill, NVD, chest pain, palpitations, abdominal pain. Reports tolerating PO, ambulation. Patient states that his main concern is his back pain. He does not feel more SOB than normal. - Objective MAR Reviewed: Yes Vital Signs & Weight: Vital Signs (12 hours) Temp Pulse Resp BP BP Pulse Ox 07/16/19 08:26 114/73 07/16/19 06:55 90 14 07/16/19 04:00 98.2 F 90 20 124/81 93 L 07/16/19 00:00 98.4 F 95 20 115/73 95 07/15/19 23:57 80 16 100 Weight Weight 121.3 kg I&O: 07/15/19 07/16/19 07/17/19 06:59 06:59 06:59 Intake Total 3280 Output Total 350 Balance 2930 Result Diagrams: 07/16/19 05:38 07/16/19 05:38 Phys Exam - Physical Examination Constitutional: NAD HEENT: PERRLA, moist MMs, sclera anicteric Neck: supple, full ROM Respiratory: clear to auscultation bilateral Cardiovascular: RRR Gastrointestinal: soft, non-tender, no distention, positive bowel sounds No spinal TTP Neurological: non-focal, normal sensation, moves all 4 limbs Psychiatric: normal affect, A&O x 3 Skin: no rash, normal turgor, cap refill <2 seconds Dx/Plan (1) Bladder cancer Status: Acute (2) BPH (benign prostatic hyperplasia) Code(s): N40.0 - BENIGN PROSTATIC HYPERPLASIA WITHOUT LOWER URINRY TRACT SYMP Status: Chronic Qualifiers: Lower urinary tract symptom presence: symptoms absent Qualified Code(s): N40.0 - Benign prostatic hyperplasia without lower urinary tract symptoms (3) CAD (coronary artery disease) Code(s): I25.10 - ATHSCL HEART DISEASE OF [place] CORONARY ARTERY W/O ANG PCTRS Status: Chronic Qualifiers: Coronary Disease-Associated Artery/Lesion type: bypass graft [place] vs. transplanted heart: [place] heart Associated angina: without angina Qualified Code(s): I25.810 - Atherosclerosis of coronary artery bypass graft(s) without angina pectoris (4) HTN (hypertension) Code(s): I10 - ESSENTIAL (PRIMARY) HYPERTENSION Status: Chronic Qualifiers: Hypertension type: essential hypertension Qualified Code(s): I10 - Essential (primary) hypertension (5) History of AAA (abdominal aortic aneurysm) repair Code(s): Z98.890 - OTHER SPECIFIED POSTPROCEDURAL STATES Status: Chronic - Plan Plan: Acute Hypoxic Resp Failure 2/2 suspected underlying COPD Patient presented to the ER satting 70% on RA. CXR showing cardiomegaly. - Duonebs AISHA - Procal neg; no indication to start antibiotics at this time. Flu swab neg. - Will give methylprednisolone x 3 then start prednisone - Keep O2 sats 88-92%, continue NC and ween as tolerated - Will need further work up outpatient including spirometry Hematemesis 2/2 UGIB Patient with coffee ground emesis x 4 today. Recent Alieve use. Emesis likely due to ulcer from NSAID use. CT abd r/o SBO. - s/p IV protonix, can switch to PO - Zofran PRN - H/H and vitals stable, will continue to monitor - Advised patient to avoid NSAIDs - Will consult GI to see if EGD is necessary if patient continues to have coffee ground emesis Constipation Patient reports no BM x 6 days - Will add on bowel regimen and monitor Back pain CT showing compression fracture of T12 - Continue home tramadol and tylenol for pain HTN - aware, will restart home meds GERD - aware, on PPI Hx of stroke - aware, will need to hold anticoagulation due to hematemesis. Patient is s/p right carotid endarterectomy on 11/12/17. Hx of bladder cancer - aware, continue home meds Hx of BPH, s/p urolift - aware, continue home meds Hx of AAA, s/p repair - aware, stable. CT neg for dissection on 07/10/19. Code: FULL VTE: SCDs Diet: HH lo sod Dispo: pending clinical course Case discussed with Dr. Gomez Addendum - Attending - Attending Attestation Date/Time: 07/16/19 [id number] I personally evaluated the patient and discussed the management with Dr. Lal I agree with the History, Examination, Assessment and Plan documented above with any addition or exceptions noted below. Still requires oxygen this morning. will upgrade to inpatient for acute hypoxic resp distress. Continue steroids and nebs. No acute upper GI bleeding events overnight. aggressive bowel regimen as no BM for 5 days. FOBT to verify blood in GI tract. Consider GI consult if further signs of GI bleed.
[2019-07-16] MEDS: Potassium Chloride 8 MEQ TAB PO SCH ×2 (09:00→20:55)
[2019-07-16] MEDS: Polyethylene Glycol 3350 17 GM Packet PO SCH (09:00)
[2019-07-16] MEDS ORDERED: Fleet Enema 133 ML BOT PR SCH ×2 (09:15→13:45)
[2019-07-16] MEDS: Lidocaine 5% Patch TD SCH (11:51)
[2019-07-16] MEDS: Diabetic Tussin 200 MG/10 ML UDCUP PO PRN (15:22)
[2019-07-16] MEDS: traMADol HCl 50 MG TAB PO SCH (20:56)
[2019-07-16] MEDS: Simvastatin 5 MG TAB PO SCH (20:56)
[2019-07-16] MEDS: Senokot S 8.6-50 MG TAB PO SCH (20:56)
[2019-07-16] MEDS: Lidocaine Patch Removal 1 EACH TOP SCH (23:02)
[2019-07-17] MEDS: Diabetic Tussin 200 MG/10 ML UDCUP PO PRN ×3 (04:26→15:18)
[2019-07-17] MEDS: predniSONE 20 MG TAB PO SCH (08:32)
[2019-07-17] MEDS: Senokot S 8.6-50 MG TAB PO SCH ×2 (08:32→20:04)
[2019-07-17] MEDS: Lisinopril 10 MG TAB PO SCH (08:32)
[2019-07-17] MEDS: Multivit, Therapeutic 1 TAB PO SCH (08:32)
[2019-07-17] MEDS: Tamsulosin HCl 0.4 MG CAP PO SCH (08:32)
[2019-07-17] MEDS: Polyethylene Glycol 3350 17 GM Packet PO SCH (08:33)
[2019-07-17] MEDS: Ubidecarenone 50 MG CAP PO SCH (08:33)
[2019-07-17] MEDS: Isosorbide Mononitrate 20 MG TAB PO SCH (08:33)
--- NOTE | 2019-07-17 08:36 | PDOC.FM ---
- Subjective Subjective: NAEO. Patient sitting at the bedside eating breakfast. Patient did have a BM yesterday. He states his breathing is good, but that he never has felt SOB. She reports his back pain is improved with the patch. - Objective Vital Signs & Weight: Vital Signs (12 hours) Temp Pulse Resp BP Pulse Ox 07/17/19 08:00 97.4 F L 94 14 119/64 93 L 07/17/19 07:29 75 16 90 L 07/17/19 04:00 94 18 92 L 07/17/19 00:44 96 16 86 L Weight Weight 121 kg I&O: 07/16/19 07/17/19 07/18/19 06:59 06:59 06:59 Intake Total 3280 240 Output Total 350 Balance 2930 240 Result Diagrams: 07/16/19 05:38 07/16/19 05:38 Dx/Plan (1) Bladder cancer Status: Acute (2) BPH (benign prostatic hyperplasia) Code(s): N40.0 - BENIGN PROSTATIC HYPERPLASIA WITHOUT LOWER URINRY TRACT SYMP Status: Chronic Qualifiers: Lower urinary tract symptom presence: symptoms absent Qualified Code(s): N40.0 - Benign prostatic hyperplasia without lower urinary tract symptoms (3) CAD (coronary artery disease) Code(s): I25.10 - ATHSCL HEART DISEASE OF [place] CORONARY ARTERY W/O ANG PCTRS Status: Chronic Qualifiers: Coronary Disease-Associated Artery/Lesion type: bypass graft [place] vs. transplanted heart: [place] heart Associated angina: without angina Qualified Code(s): I25.810 - Atherosclerosis of coronary artery bypass graft(s) without angina pectoris (4) HTN (hypertension) Code(s): I10 - ESSENTIAL (PRIMARY) HYPERTENSION Status: Chronic Qualifiers: Hypertension type: essential hypertension Qualified Code(s): I10 - Essential (primary) hypertension (5) History of AAA (abdominal aortic aneurysm) repair Code(s): Z98.890 - OTHER SPECIFIED POSTPROCEDURAL STATES Status: Chronic - Plan Plan: Acute Hypoxic Resp Failure 2/2 suspected underlying COPD Patient presented to the ER satting 70% on RA. CXR showing cardiomegaly. - Duonebs AISHA - Procal neg; no indication to start antibiotics at this time. Flu swab neg. - PO prednisone x 5 days - Keep O2 sats 88-92%, continue NC and ween as tolerated - Will need further work up outpatient including spirometry - May need to set up with home O2. Hematemesis 2/2 UGIB Patient with coffee ground emesis x 4 today. Recent Alieve use. Emesis likely due to ulcer from NSAID use. CT abd r/o SBO. - Patient with no other emesis since day of admission - s/p IV protonix, can switch to PO - Zofran PRN - FOBT pending - H/H and vitals stable, will continue to monitor - Advised patient to avoid NSAIDs - Will consult GI to see if EGD is necessary if patient continues to have coffee ground emesis Constipation Patient reports no BM x 6 days - Patient with BM. Continue Bowel Regimen as needed. Back pain CT showing compression fracture of T12 - Continue home tramadol and tylenol for pain HTN - aware, will restart home meds GERD - aware, on PPI Hx of stroke - aware, will need to hold anticoagulation due to hematemesis. Patient is s/p right carotid endarterectomy on 11/12/17. Hx of bladder cancer - aware, continue home meds Hx of BPH, s/p urolift - aware, continue home meds Hx of AAA, s/p repair - aware, stable. CT neg for dissection on 07/10/19. Code: FULL VTE: SCDs Diet: HH lo sod Dispo: pending clinical course Case discussed with Dr. ROSEN Addendum - Attending - Attending Attestation Date/Time: 07/17/19 0908 I personally evaluated the patient and discussed the management with Dr. Lal. I agree with the History, Examination, Assessment and Plan documented above with any addition or exceptions noted below. [id number] with a suspected COPD and compression fx of lumbar spine. Still requiring O2 via NC this AM and overnight. Will do walking O2 trial today & likely send home with O2 to use HS and PRN during the day. Will start on inhaled steroids and refer to follow-up with pulmonology upon likely d/c home today. Continue lidocaine patch for back fx and consider DEXA as an outpatient.
[2019-07-17] MEDS ORDERED: Fleet Enema 133 ML BOT PR SCH (08:45)
[2019-07-17] MEDS: Potassium Chloride 8 MEQ TAB PO SCH ×2 (09:37→20:04)
[2019-07-17] MEDS: Lidocaine 5% Patch TD SCH (09:38)
[2019-07-17 09:53] LABS: #Eosinphils 0.1 thou/uL (0.0-0.7); #Lymphocytes 0.8 thou/uL (1.20-3.40); #Monocytes 0.8 thou/uL (0.11-0.59); #Neutrophils 12.1 thou/uL (1.40-6.50); %Eosinophils 0.5 % (0.0-10.0); %Lymphocytes 5.8 % (21.0-51.0); %Monocytes 5.4 % (0.0-10.0); %Neutrophils 88.3 % (42.0-75.0); Hemoglobin 12.5 g/dL (14.0-18.0); Mean Corpuscular HGB CONC 32.1 g/dL (32.0-36.0); Mean Corpuscular Hemoglobin 30.9 pg (27.0-31.0); Mean Corpuscular Volume 96.1 fL (78.0-98.0); Mean Platelet Volume 9.3 fL (7.4-10.4); Platelet Count 163 thou/uL (130-400); RBC Distribution Width 12.9 % (11.5-14.5); Red Blood Cell (RBC) Count 4.05 mill/uL (4.70-6.10); White Blood Cell (WBC) Count 13.7 thou/uL (4.8-10.8)
[2019-07-17 10:18] LABS: Anion Gap 9 mmol/L (10-20); BUN (Urea Nitrogen) 18 mg/dL (8.4-25.7); Calc. Creatinine Clearance 126 mL/min (70-130); Calcium 8.9 mg/dL (7.8-10.44); Carbon Dioxide 33 mmol/L (23-31); Chloride 100 mmol/L (98-107); Estimated GFR-MDRD Greater than 90; Glucose 155 mg/dL (83-110); Potassium 4.7 mmol/L (3.5-5.1); Sodium 137 mmol/L (136-145)
[2019-07-17] MEDS: Acetaminophen 325 MG TAB PO PRN (15:18)
[2019-07-17] MEDS ORDERED: Famotidine 20 MG TAB PO PRN (19:02)
[2019-07-17] MEDS: Mometasone 100 MCG HFA INHALER INH SCH (19:47)
[2019-07-17] MEDS: traMADol HCl 50 MG TAB PO SCH (20:02)
[2019-07-17] MEDS: Simvastatin 5 MG TAB PO SCH (20:03)
[2019-07-17] MEDS: Lidocaine Patch Removal 1 EACH TOP SCH (20:07)
[2019-07-18] MEDS: Mometasone 100 MCG HFA INHALER INH SCH ×2 (06:23→20:24)
--- NOTE | 2019-07-18 06:33 | PDOC.FM ---
- Subjective Subjective: pt resting comfortably in bed, denies dyspnea or hematemesis - Objective Vital Signs & Weight: Vital Signs (12 hours) Temp Pulse Resp BP Pulse Ox 07/18/19 06:20 75 20 97 07/18/19 04:43 97.5 F L 69 14 138/82 96 07/18/19 00:42 81 20 95 07/18/19 00:01 97.5 F L 80 12 145/84 H 96 07/17/19 20:18 97.6 F 88 18 131/80 94 L 07/17/19 20:00 94 L 07/17/19 19:46 80 24 H 92 L Weight Weight 121.251 kg I&O: 07/16/19 07/17/19 07/18/19 06:59 06:59 06:59 Intake Total 3280 240 1700 Output Total 350 1025 Balance 2930 240 675 Result Diagrams: 07/18/19 06:28 07/17/19 09:43 Phys Exam - Physical Examination Constitutional: NAD HEENT: moist MMs Neck: no JVD Respiratory: clear to auscultation bilateral Cardiovascular: RRR Gastrointestinal: no distention Musculoskeletal: pulses present Neurological: non-focal Psychiatric: normal affect Dx/Plan (1) Acute ischemic stroke Code(s): I63.9 - CEREBRAL INFARCTION, UNSPECIFIED Status: Acute (2) Bladder cancer Status: Acute (3) BPH (benign prostatic hyperplasia) Code(s): N40.0 - BENIGN PROSTATIC HYPERPLASIA WITHOUT LOWER URINRY TRACT SYMP Status: Chronic Qualifiers: Lower urinary tract symptom presence: symptoms absent Qualified Code(s): N40.0 - Benign prostatic hyperplasia without lower urinary tract symptoms (4) CAD (coronary artery disease) Code(s): I25.10 - ATHSCL HEART DISEASE OF [place] CORONARY ARTERY W/O ANG PCTRS Status: Chronic Qualifiers: Coronary Disease-Associated Artery/Lesion type: bypass graft [place] vs. transplanted heart: [place] heart Associated angina: without angina Qualified Code(s): I25.810 - Atherosclerosis of coronary artery bypass graft(s) without angina pectoris (5) HTN (hypertension) Code(s): I10 - ESSENTIAL (PRIMARY) HYPERTENSION Status: Chronic Qualifiers: Hypertension type: essential hypertension Qualified Code(s): I10 - Essential (primary) hypertension (6) History of AAA (abdominal aortic aneurysm) repair Code(s): Z98.890 - OTHER SPECIFIED POSTPROCEDURAL STATES Status: Chronic - Plan Plan: Acute Hypoxic Resp Failure 2/2 suspected underlying COPD Patient presented to the ER satting 70% on RA. CXR showing cardiomegaly. - Duonebs AISHA, prednisone - Keep O2 sats 88-92%, continue NC and ween as tolerated - set up for home O2 Hematemesis 2/2 UGIB Patient with coffee ground Emesis likely due to ulcer from NSAID use - protonix PO, FOBT + - H/H and vitals stable, will continue to monitor - Advised patient to avoid NSAIDs Constipation - fleets prn Back pain CT showing compression fracture of T12 - Continue home tramadol and tylenol for pain HTN - aware, home meds GERD - aware, on PPI Hx of stroke - aware, will need to hold anticoagulation due to hematemesis. Patient is s/p right carotid endarterectomy on 11/12/17. Hx of bladder cancer - aware, continue home meds Hx of BPH, s/p urolift - aware, continue home meds Hx of AAA, s/p repair - aware, stable. CT neg for dissection on 07/10/19. Code: FULL VTE: SCDs Diet: HH lo sod Dispo: stable for dc when O2 available at home Addendum - Attending - Attending Attestation Date/Time: 07/18/19 3231 I personally evaluated the patient and discussed the management with Dr. Watt. I agree with the History, Examination, Assessment and Plan documented above with any addition or exceptions noted below. Patient reports feeling well and desires to go home. We will need to wean him from O2. He has had no further evidence of GI bleeding, H/H stable. Will need Protonix BID. Ambulate and see how he feels today.
[2019-07-18 07:02] LABS: #Monocytes 0.9 thou/uL (0.11-0.59); #Neutrophils 8.3 thou/uL (1.40-6.50); %Eosinophils 0.4 % (0.0-10.0); %Lymphocytes 17.5 % (21.0-51.0); %Monocytes 8.1 % (0.0-10.0); Hemoglobin 13.1 g/dL (14.0-18.0); Mean Corpuscular HGB CONC 31.6 g/dL (32.0-36.0); Mean Corpuscular Hemoglobin 30.4 pg (27.0-31.0); Mean Corpuscular Volume 96.2 fL (78.0-98.0); Platelet Count 166 thou/uL (130-400); Red Blood Cell (RBC) Count 4.32 mill/uL (4.70-6.10); White Blood Cell (WBC) Count 11.2 thou/uL (4.8-10.8)
[2019-07-18] MEDS: predniSONE 20 MG TAB PO SCH (08:35)
[2019-07-18] MEDS: Potassium Chloride 8 MEQ TAB PO SCH ×2 (08:36→21:47)
[2019-07-18] MEDS: Multivit, Therapeutic 1 TAB PO SCH (08:36)
[2019-07-18] MEDS: Lisinopril 10 MG TAB PO SCH (08:36)
[2019-07-18] MEDS: Tamsulosin HCl 0.4 MG CAP PO SCH (08:37)
[2019-07-18] MEDS: Isosorbide Mononitrate 20 MG TAB PO SCH (08:37)
[2019-07-18] MEDS: Polyethylene Glycol 3350 17 GM Packet PO SCH (08:37)
[2019-07-18] MEDS: Diabetic Tussin 200 MG/10 ML UDCUP PO PRN (08:37)
[2019-07-18] MEDS: Ubidecarenone 50 MG CAP PO SCH (08:37)
[2019-07-18] MEDS: Lidocaine 5% Patch TD SCH (08:37)
[2019-07-18] MEDS: Senokot S 8.6-50 MG TAB PO SCH ×2 (08:37→21:47)
--- NOTE | 2019-07-18 11:29 | EKG ---
Test Reason : VOMITING STOOL Blood Pressure : / mmHG Vent. Rate : 090 BPM Atrial Rate : 090 BPM P-R Int : 172 ms QRS Dur : 098 ms QT Int : 390 ms P-R-T Axes : 011 -23 040 degrees QTc Int : 477 ms Sinus rhythm with Premature atrial complexes Otherwise normal ECG Confirmed by FILIBERTO HICKS DO ([id number]), communications editor MIKE SOSA ([id number]) on 07/18/2019 11:28:52 AM Referred By: Confirmed By:FILIBERTO HICKS DO
[2019-07-18] MEDS: Calcium Carbonate 500 MG ChewTAB PO PRN (16:20)
[2019-07-18] MEDS: traMADol HCl 50 MG TAB PO SCH (21:46)
[2019-07-18] MEDS: Simvastatin 5 MG TAB PO SCH (21:46)
[2019-07-18] MEDS: Lidocaine Patch Removal 1 EACH TOP SCH (21:48)
[2019-07-19 05:54] VITALS: BMI 33.3
[2019-07-19] MEDS: Mometasone 100 MCG HFA INHALER INH SCH (06:53)
--- NOTE | 2019-07-19 07:14 | PDOC.FM ---
- Subjective Subjective: pt resting comfortably in bed, denies sob or swelling - Objective Vital Signs & Weight: Vital Signs (12 hours) Temp Pulse Resp BP BP Pulse Ox 07/19/19 06:51 95 20 95 07/18/19 20:21 96 20 94 L 07/18/19 20:00 98.1 F 96 18 107/61 93 L 07/18/19 19:27 98 F 116 H 16 104/66 92 L Weight Weight 121 kg I&O: 07/18/19 07/19/19 07/20/19 05:59 06:59 06:59 Intake Total Output Total Balance Result Diagrams: 07/18/19 06:28 07/17/19 09:43 Phys Exam - Physical Examination Constitutional: NAD HEENT: moist MMs Neck: supple Gastrointestinal: no distention Musculoskeletal: pulses present Neurological: moves all 4 limbs Psychiatric: normal affect Skin: no rash Dx/Plan (1) Acute ischemic stroke Code(s): I63.9 - CEREBRAL INFARCTION, UNSPECIFIED Status: Acute (2) Bladder cancer Status: Acute (3) BPH (benign prostatic hyperplasia) Code(s): N40.0 - BENIGN PROSTATIC HYPERPLASIA WITHOUT LOWER URINRY TRACT SYMP Status: Chronic Qualifiers: Lower urinary tract symptom presence: symptoms absent Qualified Code(s): N40.0 - Benign prostatic hyperplasia without lower urinary tract symptoms (4) CAD (coronary artery disease) Code(s): I25.10 - ATHSCL HEART DISEASE OF [place] CORONARY ARTERY W/O ANG PCTRS Status: Chronic Qualifiers: Coronary Disease-Associated Artery/Lesion type: bypass graft [place] vs. transplanted heart: [place] heart Associated angina: without angina Qualified Code(s): I25.810 - Atherosclerosis of coronary artery bypass graft(s) without angina pectoris (5) HTN (hypertension) Code(s): I10 - ESSENTIAL (PRIMARY) HYPERTENSION Status: Chronic Qualifiers: Hypertension type: essential hypertension Qualified Code(s): I10 - Essential (primary) hypertension (6) History of AAA (abdominal aortic aneurysm) repair Code(s): Z98.890 - OTHER SPECIFIED POSTPROCEDURAL STATES Status: Chronic - Plan Plan: Acute Hypoxic Resp Failure 2/2 suspected underlying COPD Patient presented to the ER satting 70% on RA. CXR showing cardiomegaly. - Duonebs AISHA, prednisone - Keep O2 sats 88-92%, continue NC and ween as tolerated - set up for home O2 Hematemesis 2/2 UGIB Patient with coffee ground Emesis likely due to ulcer from NSAID use - protonix PO, FOBT + - H/H and vitals stable, will continue to monitor - Advised patient to avoid NSAIDs Constipation - fleets prn Back pain CT showing compression fracture of T12 - Continue home tramadol and tylenol for pain HTN - aware, home meds GERD - aware, on PPI Hx of stroke - aware, will need to hold anticoagulation due to hematemesis. Patient is s/p right carotid endarterectomy on 11/12/17. Hx of bladder cancer - aware, continue home meds Hx of BPH, s/p urolift - aware, continue home meds Hx of AAA, s/p repair - aware, stable. CT neg for dissection on 07/10/19. Code: FULL VTE: SCDs Diet: HH lo sod Dispo: stable for dc when O2 available at home Addendum - Attending - Attending Attestation Date/Time: 07/19/19 0038 I personally evaluated the patient and discussed the management with Dr. Watt. I agree with the History, Examination, Assessment and Plan documented above with any addition or exceptions noted below.
[2019-07-19] MEDS: Calcium Carbonate 500 MG ChewTAB PO PRN (08:22)
[2019-07-19] MEDS: Ubidecarenone 50 MG CAP PO SCH (08:22)
[2019-07-19] MEDS: Isosorbide Mononitrate 20 MG TAB PO SCH (08:23)
[2019-07-19] MEDS: Tamsulosin HCl 0.4 MG CAP PO SCH (08:23)
[2019-07-19] MEDS: Senokot S 8.6-50 MG TAB PO SCH (08:23)
[2019-07-19] MEDS: Lisinopril 10 MG TAB PO SCH (08:23)
[2019-07-19] MEDS: Potassium Chloride 8 MEQ TAB PO SCH (08:23)
[2019-07-19] MEDS: Multivit, Therapeutic 1 TAB PO SCH (08:24)
[2019-07-19] MEDS: Polyethylene Glycol 3350 17 GM Packet PO SCH (08:24)
[2019-07-19] MEDS: predniSONE 20 MG TAB PO SCH (08:24)
[2019-07-19] MEDS: Lidocaine 5% Patch TD SCH (10:20)
[2019-07-19 11:47] VITALS: BP 123/84; TEMP 98.6
[2019-07-19] MEDS: Diabetic Tussin 200 MG/10 ML UDCUP PO PRN (12:24)
== END 2019-07-19 12:33 | disposition home or self-care (01) | DRG 377 ==
LOC: ERS 09:04 → T4-A 13:07 → OBSVTOIN 07-16 10:51
PROVIDERS: ADMIT Family Medicine; ATTEND Family Medicine
DX: K25.4 Chronic or unspecified gastric ulcer with hemorrhage (principal); J96.01 Acute respiratory failure with hypoxia; C67.9 Malignant neoplasm of bladder, unspecified; N40.0 Benign prostatic hyperplasia without lower urinary tract symptoms; I25.10 Atherosclerotic heart disease of native coronary artery without angina pectoris; I10 Essential (primary) hypertension; J44.9 Chronic obstructive pulmonary disease, unspecified; K59.00 Constipation, unspecified; G89.29 Other chronic pain; Z96.651 Presence of right artificial knee joint; T39.395A Adverse effect of other nonsteroidal anti-inflammatory drugs [NSAID], initial encounter; E78.5 Hyperlipidemia, unspecified; K21.9 Gastro-esophageal reflux disease without esophagitis; Z95.1 Presence of aortocoronary bypass graft; Z98.890 Other specified postprocedural states; Z90.49 Acquired absence of other specified parts of digestive tract; Z79.1 Long term (current) use of non-steroidal anti-inflammatories (NSAID); Z86.73 Personal history of transient ischemic attack (TIA), and cerebral infarction without residual deficits
CPT/HCPCS: 36415; 71045; 74177; 80048; 80053; 82274; 83690; 83880; 84145; 84484; 85025; 86850; 86900; 86901; 87804; 93005; 94640; 94760; 96360; C9113; J2920; J7512; J7620; Q9967

== ENCOUNTER 2020-06-08 09:05 | Outpatient (CLI) | payer MEDICARE, OTHER ==
--- NOTE | 2020-06-08 09:38 | RAD ---
EXAM: Two views chest PROVIDED CLINICAL HISTORY: Dyspnea. History of cardiac bypass procedure. Shortness of breath and COPD. COMPARISON: 07/15/2019 FINDINGS: Vascular calcifications are seen in a tortuous and ectatic thoracic aorta. Cardiac silhouette is stab le in size. Pulmonary vasculature is within normal limits. Mild linear densities are seen at each lung base which may be related to volume loss and/or mild chronic lung changes. No consolidation or p leural fluid is seen. There is a vertebral plana type deformity involving a lower thoracic vertebral body likely related to the T12 vertebral body. Degree of height loss has increased compared to CT abdomen on 07/15/2019. Evidence of prior granulomatous disease is again seen. IMPRESSION: 1. Mild increased linear densities in the midlung zones and at each lung base which may represent vol ume loss and/or mild chronic lung changes. Superimposed more acute infectious process cannot be entirely excluded. 2. Ectasia and tortuosity of the thoracic aorta diffusely. 3. 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
== END 2020-06-08 09:06 | disposition home or self-care (01) ==
LOC: BICRAD 09:05
PROVIDERS: ATTEND Internal Medicine Critical Care Medicine
DX: R06.00 Dyspnea, unspecified (principal); J98.4 Other disorders of lung; I77.810 Thoracic aortic ectasia; M43.8X4 Other specified deforming dorsopathies, thoracic region
CPT/HCPCS: 71046

== ENCOUNTER 2020-07-25 10:36 | Outpatient (CLI) | payer MEDICARE, OTHER ==
[2020-07-25 12:10] LABS: Bilirubin Neg (Negative); Blood, Urine 25 (Negative); Clarity Clear (Clear); Glucose, Urine (Dipstick) Normal (Negative); Ketone, Urine Negative (Negative); Leukocyte 500 (Negative); Nitrite Negative (Negative); Protein, Urine (Dipstick) Negative (Neg-Trace); Specific Gravity, Urine 1.015 (1.002-1.036); Urobilinogen Normal mg/dL (Less than 2)
[2020-07-25 12:28] LABS: Hemoglobin 12.3 g/dL (13.5-17.5); Mean Corpuscular HGB CONC 31.1 g/dL (32.0-36.0); Mean Platelet Volume 11.1 fl (7.4-10.4); Platelet Count 206 10x3/uL (150-450); RBC Distribution Width 14.6 % (11.5-14.5); White Blood Cell (WBC) Count 6.6 10x3/uL (3.5-10.5)
[2020-07-25 12:32] LABS: Anion Gap 14 mmol/L (10-20); BUN (Urea Nitrogen) 22 mg/dL (8.4-25.7); Calc. Creatinine Clearance 0 mL/min (70-130); Calcium 9.1 mg/dL (7.8-10.44); Carbon Dioxide 29 mmol/L (23-31); Chloride 103 mmol/L (98-107); Glucose 94 mg/dL (83-110); Potassium 4.3 mmol/L (3.5-5.1); Sodium 142 mmol/L (136-145)
[2020-07-25 12:34] LABS: Bacteria/HPF 2+ HPF (None Seen); Renal Epithelial 0-3 HPF (None Seen); WBC/HPF Greater than 50 HPF (0-3)
[2020-07-25 12:48] LABS: PTT 27.8 sec (22.0-33.0); Prothrombin Time 10.9 sec (9.5-12.1)
[2020-07-26 01:26] LABS: SARS-CoV-2 PCR by NAA Not Detected (NotDetected)
== END 2020-07-25 10:37 | disposition home or self-care (01) ==
LOC: LABBT 10:36
PROVIDERS: ATTEND Urology
DX: Z01.818 Encounter for other preprocedural examination (principal); Z20.822 Contact with and (suspected) exposure to COVID-19; C67.9 Malignant neoplasm of bladder, unspecified; N40.1 Benign prostatic hyperplasia with lower urinary tract symptoms; N13.70 Vesicoureteral-reflux, unspecified; E29.1 Testicular hypofunction; G47.33 Obstructive sleep apnea (adult) (pediatric); J44.9 Chronic obstructive pulmonary disease, unspecified; N32.81 Overactive bladder; H81.09 Meniere's disease, unspecified ear
CPT/HCPCS: 80048; 81001; 85027; 85610; 85730; 87086; 93005; U0003; U0005; 87077; 87186; 87635; 93010

== ENCOUNTER 2020-07-28 05:46 | Day surgery (SDC) | payer MEDICARE, OTHER ==
[2020-07-27 11:24] VITALS: BMI 32.5
[2020-07-28] MEDS ORDERED: Levofloxacin 500 mg/D5W 100 ml Premix Bag ONE (06:15)
[2020-07-28] MEDS ORDERED: Fentanyl 100 MCG/2 ML VIAL ONE (06:33)
[2020-07-28] MEDS ORDERED: mitoMYcin 40 MG in Water For Injection,Sterile 20 ML I-VESIC SCH (07:30)
[2020-07-28] MEDS ORDERED: Succinylcholine 200 MG/10 ml SYRINGE FS ONE (07:44)
[2020-07-28] MEDS ORDERED: Ondansetron PF 4 MG/2 ML Vial ONE (07:44)
[2020-07-28] MEDS ORDERED: PROPOFOL 200 MG/20 ML VIAL ONE (07:44)
[2020-07-28] MEDS ORDERED: Lidocaine 1% PF 5 ML VIAL ONE (07:44)
[2020-07-28] MEDS ORDERED: B & O ONE (08:07)
[2020-07-28] MEDS ORDERED: Iothalamate Meglumine 60% 50 ML VIAL FS ONE (08:08)
== END 2020-07-28 13:20 | disposition home or self-care (01) ==
LOC: SDC 05:46
PROVIDERS: ATTEND Urology
PROC: 0T5B8ZZ Destruction of Bladder, Via Natural or Artificial Opening Endoscopic (ICD-10-PCS; principal; 2020-07-28)
PROC: 0T5C8ZZ Destruction of Bladder Neck, Via Natural or Artificial Opening Endoscopic (ICD-10-PCS; 2020-07-28)
DX: C67.9 Malignant neoplasm of bladder, unspecified (principal); N30.20 Other chronic cystitis without hematuria; J44.9 Chronic obstructive pulmonary disease, unspecified; Z79.82 Long term (current) use of aspirin; Z79.899 Other long term (current) drug therapy; Z88.8 Allergy status to other drugs, medicaments and biological substances
CPT/HCPCS: 52214; 52240; 88307; J9280; J1956; J2405; J2704; J3010; Q9961

== ENCOUNTER 2020-08-25 10:36 | Outpatient (CLI) | payer MEDICARE, OTHER ==
[2020-08-25] MEDS ORDERED: Iopamidol 370 76% 100 ML VIAL ONE (13:00)
== END 2020-08-25 10:37 | disposition home or self-care (01) ==
LOC: CT 10:36
PROVIDERS: ATTEND Urology
DX: C67.9 Malignant neoplasm of bladder, unspecified (principal); N13.70 Vesicoureteral-reflux, unspecified; N32.89 Other specified disorders of bladder; N20.0 Calculus of kidney; N28.1 Cyst of kidney, acquired; I71.4 Abdominal aortic aneurysm, without rupture
CPT/HCPCS: 74178; 76870; 81001; 87077; 87086; 87186; 93976; Q9967

== ENCOUNTER 2021-07-05 07:47 | Emergency (ER) | payer MEDICARE, OTHER ==
[2021-07-05 08:39] LABS: #Eosinphils 0.1 thou/uL (0.0-0.7); #Lymphocytes 1.2 thou/uL (1.20-3.40); #Monocytes 0.6 thou/uL (0.11-0.59); #Neutrophils 3.1 thou/uL (1.40-6.50); %Basophils 0.9 % (0.0-1.0); %Eosinophils 2.4 % (0.0-10.0); %Monocytes 11.3 % (0.0-10.0); %Neutrophils 62.4 % (42.0-75.0); Hemoglobin 13.6 g/dL (14.0-18.0); Mean Corpuscular HGB CONC 31.7 g/dL (32.0-36.0); Mean Corpuscular Hemoglobin 29.8 pg (27.0-31.0); Mean Corpuscular Volume 94.2 fL (78.0-98.0); Mean Platelet Volume 8.1 fL (7.4-10.4); Platelet Count 156 thou/uL (130-400); RBC Distribution Width 13.7 % (11.5-14.5); Red Blood Cell (RBC) Count 4.57 mill/uL (4.70-6.10)
[2021-07-05 09:01] LABS: ALT (SGPT) Less than 7 U/L (8-55); AST (SGOT) 16 U/L (5-34); Albumin 3.8 g/dL (3.4-4.8); Alkaline Phosphatase 94 U/L (40-110); Anion Gap 14 mmol/L (10-20); BUN (Urea Nitrogen) 22 mg/dL (8.4-25.7); Bilirubin, Total 0.6 mg/dL (0.2-1.2); Calc. Creatinine Clearance 0 mL/min (70-130); Calcium 8.8 mg/dL (7.8-10.44); Carbon Dioxide 29 mmol/L (23-31); Chloride 102 mmol/L (98-107); Globulin 2.9 g/dL (2.4-3.5); Glucose 115 mg/dL (83-110); Potassium 3.6 mmol/L (3.5-5.1); Protein, Total 6.7 g/dL (5.8-8.1); Sodium 141 mmol/L (136-145)
== END 2021-07-05 10:22 | disposition home or self-care (01) ==
LOC: ERS 07:47
DX: L03.115 Cellulitis of right lower limb (principal); I25.10 Atherosclerotic heart disease of native coronary artery without angina pectoris; E78.5 Hyperlipidemia, unspecified; E78.00 Pure hypercholesterolemia, unspecified; I10 Essential (primary) hypertension; Z79.899 Other long term (current) drug therapy
CPT/HCPCS: 36415; 80053; 85025

== ENCOUNTER 2022-02-16 13:43 | Outpatient (CLI) | payer MEDICARE, OTHER ==
[~2022-02-16 13:43] MED LIST changes: +Iopamidol 370 76% 100 ML VIAL ONE; -Iopamidol-370 76% 500 ML 1 ML ONE
== END 2022-02-16 13:44 | disposition home or self-care (01) ==
LOC: CT 13:43
PROVIDERS: ATTEND Urology
DX: C67.9 Malignant neoplasm of bladder, unspecified (principal); I10 Essential (primary) hypertension; I71.40 Abdominal aortic aneurysm, without rupture, unspecified; I72.3 Aneurysm of iliac artery; N20.0 Calculus of kidney; N32.89 Other specified disorders of bladder; S22.081D Stable burst fracture of T11-T12 vertebra, subsequent encounter for fracture with routine healing; M47.816 Spondylosis without myelopathy or radiculopathy, lumbar region; K75.3 Granulomatous hepatitis, not elsewhere classified
CPT/HCPCS: 74178; 82565; Q9967

== ENCOUNTER 2022-03-09 08:01 | Day surgery (SDC) | payer MEDICARE, OTHER ==
[2022-03-08 11:06] VITALS: BMI 32.5
[2022-03-09] MEDS ORDERED: Ketamine 50 MG/ML (10ML VIAL) ONE (09:48)
[2022-03-09] MEDS ORDERED: fentaNYL Citrate/PF 100 MCG/2 ML SYRINGE ONE ×2 (09:48→11:30)
[2022-03-09] MEDS ORDERED: B & O 30 MG SUPP ONE (09:49)
[2022-03-09] MEDS ORDERED: Levofloxacin 500 mg/D5W 100 ml Premix Bag ONE (09:53)
[2022-03-09] MEDS ORDERED: SUGAMMADEX SODIUM 200 MG/2 ML VIAL ONE (09:58)
[2022-03-09] MEDS ORDERED: Rocuronium Bromide 10 MG/ML (10ML VIAL) ONE (10:09)
[2022-03-09] MEDS ORDERED: Dexamethasone 20 MG/5 ML VIAL ONE (10:09)
[2022-03-09] MEDS ORDERED: Ondansetron PF 4 MG/2 ML Vial ONE ×2 (10:09→13:06)
[2022-03-09] MEDS ORDERED: PHENYLEPHRINE-NS 100 MCG/ML 10 ML SYRINGE ONE (10:09)
[2022-03-09] MEDS ORDERED: PROPOFOL 200 MG/20 ML VIAL ONE (10:09)
[2022-03-09] MEDS ORDERED: mitoMYcin 40 MG in Water For Injection,Sterile 20 ML I-VESIC SCH (10:30)
== END 2022-03-09 14:00 | disposition home or self-care (01) ==
LOC: SDC 08:01
PROVIDERS: ATTEND Urology
PROC: 0TBB8ZX Excision of Bladder, Via Natural or Artificial Opening Endoscopic, Diagnostic (ICD-10-PCS; principal; 2022-03-09)
PROC: 3E0K705 Introduction of Other Antineoplastic into Genitourinary Tract, Via Natural or Artificial Opening (ICD-10-PCS; 2022-03-09)
DX: C67.3 Malignant neoplasm of anterior wall of bladder (principal); N32.81 Overactive bladder; N40.1 Benign prostatic hyperplasia with lower urinary tract symptoms; N13.8 Other obstructive and reflux uropathy; J44.9 Chronic obstructive pulmonary disease, unspecified; N13.70 Vesicoureteral-reflux, unspecified; G47.33 Obstructive sleep apnea (adult) (pediatric); E29.1 Testicular hypofunction; H81.09 Meniere's disease, unspecified ear; G62.9 Polyneuropathy, unspecified; I10 Essential (primary) hypertension; E89.2 Postprocedural hypoparathyroidism; I25.10 Atherosclerotic heart disease of native coronary artery without angina pectoris; K21.9 Gastro-esophageal reflux disease without esophagitis; E89.0 Postprocedural hypothyroidism; Z87.891 Personal history of nicotine dependence; Z79.82 Long term (current) use of aspirin; Z79.899 Other long term (current) drug therapy; Z88.8 Allergy status to other drugs, medicaments and biological substances; Z95.1 Presence of aortocoronary bypass graft
CPT/HCPCS: 51720; 52240; J9280; 88307; 88342; A4216; J1100; J1956; J2405; J2704; J7620

== ENCOUNTER 2022-07-08 10:51 | Observation (INO) | payer MEDICARE, OTHER ==
[~2022-07-08 10:51] MED LIST changes: -Iopamidol 370 76% 100 ML VIAL ONE; +Iopamidol-370 76% 500 ML 1 ML ONE
[2022-07-08 11:37] LABS: #Eosinphils 0.2 thou/uL (0.0-0.7); #Lymphocytes 1.7 thou/uL (1.20-3.40); #Monocytes 0.6 thou/uL (0.11-0.59); #Neutrophils 4.1 thou/uL (1.40-6.50); %Basophils 0.2 % (0.0-1.0); %Eosinophils 2.9 % (0.0-10.0); %Lymphocytes 25.6 % (21.0-51.0); %Monocytes 9.3 % (0.0-10.0); Hemoglobin 13.5 g/dL (14.0-18.0); Mean Corpuscular HGB CONC 31.5 g/dL (32.0-36.0); Mean Corpuscular Hemoglobin 30.7 pg (27.0-31.0); Mean Corpuscular Volume 97.4 fl (78.0-98.0); Mean Platelet Volume 9.6 fL (7.4-10.4); Platelet Count 127 10x3/uL (130-400); RBC Distribution Width 12.5 % (11.5-14.5); Red Blood Cell (RBC) Count 4.38 mill/uL (4.70-6.10); White Blood Cell (WBC) Count 6.6 10x3/uL (4.8-10.8)
[2022-07-08 11:44] LABS: Albumin 3.8 g/dL (3.4-4.8)
[2022-07-08 11:45] LABS: Calcium 9.2 mg/dL (7.8-10.44); Chloride 100 mmol/L (98-107); Potassium 4.5 mmol/L (3.5-5.1); Sodium 140 mmol/L (136-145)
[2022-07-08 11:46] LABS: Globulin 2.8 g/dL (2.4-3.5); Glucose 89 mg/dL (83-110); Protein, Total 6.6 g/dL (5.8-8.1)
[2022-07-08 11:48] LABS: Anion Gap 13 mmol/L (10-20); Bilirubin, Total 0.7 mg/dL (0.2-1.2); Carbon Dioxide 32 mmol/L (23-31)
[2022-07-08 11:49] LABS: Alkaline Phosphatase 74 U/L (40-110); Calc. Creatinine Clearance 0 mL/min (70-130); Estimated GFR 89
[2022-07-08 11:50] LABS: BUN (Urea Nitrogen) 21 mg/dL (8.4-25.7)
[2022-07-08 11:51] LABS: AST (SGOT) 13 U/L (5-34)
[2022-07-08 11:52] LABS: ALT (SGPT) Less than 7 U/L (8-55)
[2022-07-08 11:53] LABS: Prothrombin Time 13.9 sec (12.0-14.7)
[2022-07-08 11:58] LABS: PTT 28.7 sec (22.9-36.1)
[2022-07-08] MEDS ORDERED: hydrALAZINE 20 MG/ML VIAL SLOW IVP PRN (12:55)
[2022-07-08] MEDS ORDERED: Ondansetron PF 4 MG/2 ML Vial IVP PRN (12:55)
[2022-07-08] MEDS ORDERED: Acetaminophen 325 MG TAB PO PRN (12:55)
[2022-07-08] MEDS ORDERED: Calcium Carbonate 500 MG ChewTAB PO PRN (12:55)
[2022-07-08] MEDS ORDERED: Senokot S 8.6-50 MG TAB PO PRN (12:55)
[2022-07-08] MEDS ORDERED: Ondansetron ODT 4 MG TAB PO PRN (12:55)
[2022-07-08 15:52] VITALS: BMI 31.7
[2022-07-08] MEDS: Sodium Chloride 0.9% 1,000 ML IV SCH (16:35)
[2022-07-08] MEDS ORDERED: Atorvastatin Calcium 10 MG TAB PO SCH (21:00)
[2022-07-08] MEDS ORDERED: Aspirin Chewable 81 MG TAB PO SCH (21:00)
[2022-07-09] MEDS: Sodium Chloride 0.9% 1,000 ML IV SCH (04:52)
[2022-07-09 05:27] LABS: #Eosinphils 0.2 thou/uL (0.0-0.7); #Lymphocytes 1.5 thou/uL (1.20-3.40); #Monocytes 0.6 thou/uL (0.11-0.59); #Neutrophils 3.5 thou/uL (1.40-6.50); %Basophils 0.1 % (0.0-1.0); %Eosinophils 4.2 % (0.0-10.0); %Lymphocytes 25.8 % (21.0-51.0); %Monocytes 10.4 % (0.0-10.0); %Neutrophils 59.5 % (42.0-75.0); Hemoglobin 13.2 g/dL (14.0-18.0); Mean Corpuscular HGB CONC 31.4 g/dL (32.0-36.0); Mean Corpuscular Hemoglobin 30.5 pg (27.0-31.0); Mean Platelet Volume 9.8 fL (7.4-10.4); Platelet Count 134 10x3/uL (130-400); RBC Distribution Width 12.5 % (11.5-14.5); Red Blood Cell (RBC) Count 4.34 mill/uL (4.70-6.10); White Blood Cell (WBC) Count 5.8 10x3/uL (4.8-10.8)
[2022-07-09 05:46] LABS: Hemoglobin A1c 5.4 % (4.0-6.0)
[2022-07-09 05:47] LABS: ALT (SGPT) Less than 7 U/L (8-55); AST (SGOT) 16 U/L (5-34); Albumin 3.7 g/dL (3.4-4.8); Alkaline Phosphatase 69 U/L (40-110); Anion Gap 12 mmol/L (10-20); BUN (Urea Nitrogen) 14 mg/dL (8.4-25.7); Bilirubin, Total 0.7 mg/dL (0.2-1.2); Calc. Creatinine Clearance 126 mL/min (70-130); Calcium 9.2 mg/dL (7.8-10.44); Carbon Dioxide 33 mmol/L (23-31); Cardiac Risk 2.8 (Less than 4.5); Chloride 101 mmol/L (98-107); Cholesterol 148 mg/dl (< 200 Desired); Estimated GFR 90; Globulin 2.8 g/dL (2.4-3.5); Glucose 93 mg/dL (83-110); HDL Cholesterol 52 mg/dL (>60 Neg Risk); LDL Cholesterol, Calculated 82 mg/dL; Potassium 3.9 mmol/L (3.5-5.1); Protein, Total 6.5 g/dL (5.8-8.1); Sodium 142 mmol/L (136-145); Triglycerides 70 mg/dL (Less than 150)
[2022-07-09] MEDS ORDERED: Ezetimibe 10 MG TAB PO SCH (09:00)
[2022-07-09] MEDS ORDERED: Tamsulosin HCl 0.4 MG CAP PO SCH (09:00)
[2022-07-09] MEDS ORDERED: Aspirin 81 mg Enteric Coated Tablet PO SCH (09:00)
[2022-07-09 16:36] VITALS: BP 118/92; TEMP 98.5
[2022-07-09] MEDS ORDERED: Atorvastatin Calcium 40 MG TAB PO SCH (21:00)
== END 2022-07-09 17:44 | disposition home or self-care (01) ==
LOC: ERS 10:51 → SUATTDRO 10:51 → 2SW 12:55
PROVIDERS: ADMIT Internal Medicine; ATTEND Internal Medicine
DX: R47.81 Slurred speech (principal); R53.1 Weakness; I65.23 Occlusion and stenosis of bilateral carotid arteries; I25.10 Atherosclerotic heart disease of native coronary artery without angina pectoris; I11.9 Hypertensive heart disease without heart failure; E78.5 Hyperlipidemia, unspecified; J96.11 Chronic respiratory failure with hypoxia; I69.398 Other sequelae of cerebral infarction; G93.89 Other specified disorders of brain; I67.2 Cerebral atherosclerosis; I08.3 Combined rheumatic disorders of mitral, aortic and tricuspid valves; N40.0 Benign prostatic hyperplasia without lower urinary tract symptoms; Z85.51 Personal history of malignant neoplasm of bladder; Z87.891 Personal history of nicotine dependence; Z79.82 Long term (current) use of aspirin; Z79.899 Other long term (current) drug therapy; Z88.8 Allergy status to other drugs, medicaments and biological substances; Z95.1 Presence of aortocoronary bypass graft; Z99.81 Dependence on supplemental oxygen; Z20.822 Contact with and (suspected) exposure to COVID-19
CPT/HCPCS: 70450; 70496; 70498; 70551; 71045; 80053 ×2; 80061; 82962; 83036; 84484; 85025 ×2; 85610; 85730; 93005; 93306; 96372; 97116; 99285; G0378 ×3; U0003; U0005; 36415; 36416; J1650; J7050; Q9967

== ENCOUNTER 2022-07-11 13:32 | Inpatient (IN) | payer MEDICARE, OTHER ==
[2022-07-11] MEDS ORDERED: Fentanyl 100 MCG/2 ML VIAL ONE (15:30)
[2022-07-11 15:55] LABS: #Eosinphils 0.1 thou/uL (0.0-0.7); #Lymphocytes 1.3 thou/uL (1.20-3.40); #Monocytes 0.7 thou/uL (0.11-0.59); #Neutrophils 5.9 thou/uL (1.40-6.50); %Basophils 0.2 % (0.0-1.0); %Eosinophils 0.7 % (0.0-10.0); %Lymphocytes 16.3 % (21.0-51.0); %Monocytes 8.3 % (0.0-10.0); %Neutrophils 74.6 % (42.0-75.0); Mean Corpuscular HGB CONC 32.6 g/dL (32.0-36.0); Mean Corpuscular Hemoglobin 31.2 pg (27.0-31.0); Mean Corpuscular Volume 95.8 fl (78.0-98.0); Mean Platelet Volume 9.8 fL (7.4-10.4); Platelet Count 133 10x3/uL (130-400); RBC Distribution Width 12.4 % (11.5-14.5); Red Blood Cell (RBC) Count 4.16 mill/uL (4.70-6.10); White Blood Cell (WBC) Count 7.9 10x3/uL (4.8-10.8)
[2022-07-11 16:08] LABS: ALT (SGPT) 7 U/L (8-55); AST (SGOT) 21 U/L (5-34); Albumin 3.7 g/dL (3.4-4.8); Alkaline Phosphatase 69 U/L (40-110); Anion Gap 12 mmol/L (10-20); BUN (Urea Nitrogen) 24 mg/dL (8.4-25.7); Bilirubin, Total 0.8 mg/dL (0.2-1.2); Calc. Creatinine Clearance 0 mL/min (70-130); Carbon Dioxide 33 mmol/L (23-31); Chloride 101 mmol/L (98-107); Estimated GFR 89; Globulin 2.8 g/dL (2.4-3.5); Glucose 124 mg/dL (83-110); Lipase 12 U/L (8-78); Magnesium 1.9 mg/dL (1.6-2.6); Potassium 4.3 mmol/L (3.5-5.1); Protein, Total 6.5 g/dL (5.8-8.1); Sodium 142 mmol/L (136-145)
[2022-07-11 17:03] LABS: Bacteria/HPF 4+ HPF (None Seen); Bilirubin Negative (Negative); Blood, Urine 2+ (Negative); Clarity Turbid (Clear); Glucose, Urine (Dipstick) Normal (Negative); Ketone, Urine Negative (Negative); Leukocyte 500 Leu/uL (Negative); Nitrite Negative (Negative); Protein, Urine (Dipstick) 30 mg/dL (Neg-Trace); RBC/HPF 21-50 HPF (0-3); Specific Gravity, Urine 1.025 (1.002-1.036); Squamous Epithelial None Seen HPF (0-3); WBC/HPF Greater than 50 HPF (0-3)
[2022-07-11] MEDS ORDERED: Morphine 2 MG/ML VIAL SLOW IVP PRN (17:16)
[2022-07-11] MEDS ORDERED: hydrALAZINE 20 MG/ML VIAL SLOW IVP PRN (17:16)
[2022-07-11] MEDS ORDERED: Ondansetron PF 4 MG/2 ML Vial IVP PRN (17:16)
[2022-07-11] MEDS ORDERED: TETANUS, DIPHTHERIA TOX,ADULT (TDVAX) 0.5 ML VIAL IM ONE (17:16)
[2022-07-11 17:55] LABS: Anion Gap 15 mmol/L (10-20); BUN (Urea Nitrogen) 23 mg/dL (8.4-25.7); Calc. Creatinine Clearance 0 mL/min (70-130); Calcium 9.1 mg/dL (7.8-10.44); Carbon Dioxide 30 mmol/L (23-31); Chloride 101 mmol/L (98-107); Estimated GFR 88; Glucose 131 mg/dL (83-110); Potassium 4.1 mmol/L (3.5-5.1); Sodium 142 mmol/L (136-145)
[2022-07-11] MEDS: Acetaminophen 325 MG TAB PO SCH ×2 (18:44→23:50)
[2022-07-11] MEDS: Ipratropium/Albuterol 3 ML NEB NEB SCH ×2 (18:50→23:53)
[2022-07-11 20:04] VITALS: BMI 31.2
[2022-07-11] MEDS: Atorvastatin Calcium 40 MG TAB PO SCH (20:37)
[2022-07-12] MEDS: Acetaminophen 500 MG TAB PO SCH ×3 (06:40→17:52)
[2022-07-12] MEDS: Ipratropium/Albuterol 3 ML NEB NEB SCH (06:55)
[2022-07-12] MEDS ORDERED: Ipratropium/Albuterol 3 ML NEB NEB PRN (07:16)
[2022-07-12] MEDS: Acetaminophen 325 MG TAB PO SCH (07:28)
[2022-07-12] MEDS: Ezetimibe 10 MG TAB PO SCH (08:42)
[2022-07-12] MEDS: CO Q-10 CAPSULE 100 MG PO SCH (08:42)
[2022-07-12] MEDS ORDERED: traMADol HCl 50 MG TAB PO PRN (10:07)
[2022-07-12] MEDS: traMADol HCl 50 MG TAB PO SCH ×2 (10:26→17:52)
[2022-07-12] MEDS: Cyclobenzaprine 10 MG TAB PO PRN (10:26)
[2022-07-12] MEDS: Ibuprofen 200 MG TAB PO SCH ×2 (14:53→20:26)
[2022-07-12] MEDS: Gabapentin 100 MG CAP PO SCH ×2 (14:53→20:25)
[2022-07-12] MEDS ORDERED: Gabapentin 300 MG CAP PO SCH (15:00)
[2022-07-12] MEDS: Benzonatate 100 MG CAP PO PRN (17:42)
[2022-07-12] MEDS: Atorvastatin Calcium 40 MG TAB PO SCH (20:25)
[2022-07-13] MEDS: Acetaminophen 500 MG TAB PO SCH ×5 (00:11→23:24)
[2022-07-13] MEDS: traMADol HCl 50 MG TAB PO SCH ×5 (00:11→23:24)
[2022-07-13] MEDS: Ibuprofen 200 MG TAB PO SCH (05:59)
[2022-07-13] MEDS: Ipratropium/Albuterol 3 ML NEB NEB SCH (08:10)
[2022-07-13] MEDS: CO Q-10 CAPSULE 100 MG PO SCH (08:46)
[2022-07-13] MEDS: Ezetimibe 10 MG TAB PO SCH (08:46)
[2022-07-13] MEDS: Gabapentin 100 MG CAP PO SCH ×3 (08:47→21:19)
[2022-07-13] MEDS: Senokot S 8.6-50 MG TAB PO SCH ×2 (08:47→21:19)
[2022-07-13] MEDS: Polyethylene Glycol 3350 17 GM Packet PO SCH (08:48)
[2022-07-13] MEDS ORDERED: cefTRIAXone\\ROCEPHIN 2 GM in Sodium Chloride 0.9% 100 ML IVPB SCH (11:00)
[2022-07-13] MEDS: Atorvastatin Calcium 40 MG TAB PO SCH (21:19)
[2022-07-13] MEDS: Aspirin 325 MG TAB PO SCH (21:19)
[2022-07-14] MEDS: traMADol HCl 50 MG TAB PO SCH ×4 (05:44→23:58)
[2022-07-14] MEDS: Acetaminophen 500 MG TAB PO SCH ×4 (05:45→23:59)
[2022-07-14] MEDS: Ipratropium/Albuterol 3 ML NEB NEB SCH (07:44)
[2022-07-14] MEDS: Polyethylene Glycol 3350 17 GM Packet PO SCH (08:58)
[2022-07-14] MEDS: Gabapentin 100 MG CAP PO SCH ×3 (08:59→20:22)
[2022-07-14] MEDS: Senokot S 8.6-50 MG TAB PO SCH ×2 (08:59→20:24)
[2022-07-14] MEDS: CO Q-10 CAPSULE 100 MG PO SCH (08:59)
[2022-07-14] MEDS: Ezetimibe 10 MG TAB PO SCH (09:00)
[2022-07-14] MEDS: Cyclobenzaprine 10 MG TAB PO PRN (10:34)
[2022-07-14] MEDS: Benzonatate 100 MG CAP PO PRN (11:49)
[2022-07-14] MEDS: Aspirin 325 MG TAB PO SCH (20:22)
[2022-07-14] MEDS: Atorvastatin Calcium 40 MG TAB PO SCH (20:22)
[2022-07-15] MEDS: Acetaminophen 500 MG TAB PO SCH ×3 (05:27→18:34)
[2022-07-15] MEDS: traMADol HCl 50 MG TAB PO SCH ×3 (05:28→18:34)
[2022-07-15 06:46] LABS: Anion Gap 10 mmol/L (10-20); BUN (Urea Nitrogen) 14 mg/dL (8.4-25.7); Calc. Creatinine Clearance 147 mL/min (70-130); Calcium 8.6 mg/dL (7.8-10.44); Carbon Dioxide 33 mmol/L (23-31); Chloride 99 mmol/L (98-107); Estimated GFR 95; Glucose 101 mg/dL (83-110); Magnesium 1.8 mg/dL (1.6-2.6); Phosphorus 3.5 mg/dL (2.3-4.7); Potassium 4.2 mmol/L (3.5-5.1); Sodium 138 mmol/L (136-145)
[2022-07-15] MEDS: CO Q-10 CAPSULE 100 MG PO SCH (08:40)
[2022-07-15] MEDS: Ezetimibe 10 MG TAB PO SCH (08:41)
[2022-07-15] MEDS: Gabapentin 100 MG CAP PO SCH ×3 (08:41→20:45)
[2022-07-15] MEDS: Senokot S 8.6-50 MG TAB PO SCH ×2 (08:42→20:50)
[2022-07-15] MEDS: Polyethylene Glycol 3350 17 GM Packet PO SCH (08:42)
[2022-07-15] MEDS: Ipratropium/Albuterol 3 ML NEB NEB SCH (10:41)
[2022-07-15] MEDS: Aspirin 325 MG TAB PO SCH (20:45)
[2022-07-15] MEDS: Atorvastatin Calcium 40 MG TAB PO SCH (20:45)
[2022-07-16] MEDS: traMADol HCl 50 MG TAB PO SCH ×3 (00:24→11:45)
[2022-07-16] MEDS: Acetaminophen 500 MG TAB PO SCH ×3 (00:24→11:46)
[2022-07-16] MEDS: Ipratropium/Albuterol 3 ML NEB NEB SCH (08:13)
[2022-07-16] MEDS: CO Q-10 CAPSULE 100 MG PO SCH (08:35)
[2022-07-16] MEDS: Senokot S 8.6-50 MG TAB PO SCH (08:35)
[2022-07-16] MEDS: Ezetimibe 10 MG TAB PO SCH (08:35)
[2022-07-16] MEDS: Gabapentin 100 MG CAP PO SCH ×2 (08:36→14:57)
[2022-07-16] MEDS: Polyethylene Glycol 3350 17 GM Packet PO SCH (08:36)
[2022-07-16 13:18] VITALS: BP 123/75; TEMP 98.2
== END 2022-07-16 15:38 | DRG 964 ==
LOC: ERS 13:32 → SURG A 17:16
PROVIDERS: ADMIT Surgery; ATTEND Surgery
DX: S32.402A Unspecified fracture of left acetabulum, initial encounter for closed fracture (principal); S37.892A Contusion of other urinary and pelvic organ, initial encounter; J96.10 Chronic respiratory failure, unspecified whether with hypoxia or hypercapnia; S32.512A Fracture of superior rim of left pubis, initial encounter for closed fracture; N39.0 Urinary tract infection, site not specified; Z20.822 Contact with and (suspected) exposure to COVID-19; I72.3 Aneurysm of iliac artery; J44.9 Chronic obstructive pulmonary disease, unspecified; I10 Essential (primary) hypertension; E78.5 Hyperlipidemia, unspecified; I25.10 Atherosclerotic heart disease of native coronary artery without angina pectoris; W18.30XA Fall on same level, unspecified, initial encounter; I48.91 Unspecified atrial fibrillation; E89.0 Postprocedural hypothyroidism; Z96.651 Presence of right artificial knee joint; Z79.899 Other long term (current) drug therapy; Z79.82 Long term (current) use of aspirin; Z99.81 Dependence on supplemental oxygen; Z85.51 Personal history of malignant neoplasm of bladder; Z95.1 Presence of aortocoronary bypass graft; Y92.129 Unspecified place in nursing home as the place of occurrence of the external cause; Z86.73 Personal history of transient ischemic attack (TIA), and cerebral infarction without residual deficits; Z90.49 Acquired absence of other specified parts of digestive tract; Z87.891 Personal history of nicotine dependence; Z88.8 Allergy status to other drugs, medicaments and biological substances
CPT/HCPCS: 36415; 36416; 70450; 70496; 70498; 70551; 71045; 72125; 72170; 80048; 80053; 80061; 81003; 81015; 83036; 83690; 83735; 83880; 84100; 84484; 85025; 85610; 85730; 87077; 87086; 87186; 90714; 93005; 93010; 93306; 94640; 96372; 96374; G0378; G0390; J0696; J1650; J2272; J3010; J3490; J7050; J7620; Q9967; U0003; U0005

== ENCOUNTER 2022-07-25 14:02 | Emergency (ER) | payer MEDICARE, OTHER | END 2022-07-25 18:14 | LOC: ERS 14:02 | DX: S32.402A Unspecified fracture of left acetabulum, initial encounter for closed fracture (principal); S72.002A Fracture of unspecified part of neck of left femur, initial encounter for closed fracture; I25.10 Atherosclerotic heart disease of native coronary artery without angina pectoris; E78.5 Hyperlipidemia, unspecified; I10 Essential (primary) hypertension; J44.9 Chronic obstructive pulmonary disease, unspecified; Z79.899 Other long term (current) drug therapy; X58.XXXA Exposure to other specified factors, initial encounter | CPT/HCPCS: 72190; 93005 ==

== ENCOUNTER 2023-06-20 13:57 | Emergency (ER) | payer MEDICARE ==
[2023-06-20] MEDS ORDERED: HYDROcodone/Acetaminophen 5/325 mg Tablet ONE (14:35)
[2023-06-20 14:58] LABS: Bacteria/HPF None Seen HPF (None Seen); Bilirubin Negative (Negative); Blood, Urine 1+ (Negative); CAUTI Indications for Culture Dysuria,urgency,freq; Clarity Clear (Clear); Glucose, Urine (Dipstick) Normal (Negative); Ketone, Urine Negative (Negative); Leukocyte 25 Leu/uL (Negative); Nitrite Negative (Negative); Protein, Urine (Dipstick) Negative (Neg-Trace); RBC/HPF 0-3 HPF (0-3); Specific Gravity, Urine 1.009 (1.002-1.036); Squamous Epithelial None Seen HPF (0-3); Urobilinogen Normal mg/dL (Less than 2)
[2023-06-20 14:59] LABS: Urine Culture Reflex No No
[2023-06-20] MEDS ORDERED: Methocarbamol 500 MG TAB ONE (16:24)
== END 2023-06-20 16:48 | disposition home or self-care (01) ==
LOC: ERS 13:57
DX: M54.50 Low back pain, unspecified (principal); I25.10 Atherosclerotic heart disease of native coronary artery without angina pectoris; E78.5 Hyperlipidemia, unspecified; I10 Essential (primary) hypertension; J44.9 Chronic obstructive pulmonary disease, unspecified; Z79.82 Long term (current) use of aspirin; Z79.899 Other long term (current) drug therapy
CPT/HCPCS: 72100; 81001